=== PATIENT | male | born 1955 | race Caucasian/White ===

== ENCOUNTER → 2020-11-03 09:33 | Outpatient (CLI) | payer MEDICARE, SELFPAY ==
--- NOTE | 2020-11-03 09:44 | CT_ITS ---
PROCEDURE: CT ABDOMEN PELVIS WO CON CLINICAL INDICATION: LT FLANK PAIN, OTHER MICROSCOPIC HEMATURIA COMPARISON: CT ABDPELW/O CT ABD PELVIS W/O CONTRAST from 12/08/2013 TECHNIQUE: Axial images obtained with sagittal and coronal reformats. All CT scans at the facility use one or more dose reduction, viz: automated exposure control, ma/kV adjustment per patient size (including targeted exams where dose is matched to indication, i.e. head), or iterative reconstruction technique. FINDINGS: LOWER THORAX: Coronary artery calcifications. Mild thickening of the pericardium inferiorly and anteriorly not significantly changed ABDOMEN & PELVIS: There are 2 hypodensities involving the right hepatic lobe posteriorly segment 7 measuring 8 and 7 mm possibly due to small cyst. The 7 mm hypodensity was not readily apparent previously. There has been a prior cholecystectomy. The spleen, adrenal glands, and pancreas have an unremarkable appearance. There is mild stranding of the perinephric fat on both sides left greater than right. There is mild left-sided hydronephrosis and hydroureter. There is a 5 mm stone at the left trigone of the bladder at the ureterovesical junction. 2 mm stone is present in the lower pole of the left kidney. No intestinal obstruction or free air. Unremarkable appendix. Colonic diverticulosis. No evidence of diverticulitis. Status post right inguinal hernia repair with hyperdense material at the inguinal canal. There is a small left inguinal hernia containing fat. There are mild degenerative changes in the lumbar spine and hips. IMPRESSION: 1. 5 mm stone is present at the trigone of the urinary bladder on the left with a stone projecting toward the central aspect of the urinary bladder. There is mild left-sided hydronephrosis and hydroureter and moderate stranding of the left perinephric renal fat. 2 mm stone is present in the lower pole of the left kidney. 2. Two nonspecific hypodensities of the liver possibly related to cysts. Stability may be confirmed with follow-up as 1 of these areas have developed since the previous exam. 3. Prior right inguinal hernia repair. Small left inguinal hernia containing fat. Dictated by: Kumar Pacheco MD 11/03/2020 10:10 Kumar Pacheco MD in [place] 11/03/2020 10:10
== END ==
PROVIDERS: PCP Family Medicine; Visit Provider Family Medicine
DX: R10.9 Unspecified abdominal pain (principal); R31.29 Other microscopic hematuria
CPT/HCPCS: 74176

== ENCOUNTER → 2021-05-08 15:28 | Outpatient (CLI) | payer MEDICARE, SELFPAY ==
--- NOTE | 2021-05-08 15:39 | CT_ITS ---
FINAL REPORT CLINICAL HISTORY: HEPATIC CYST COMPARISON: 11/03/2020 FINDINGS: Technique: Axial images through the abdomen and pelvis were performed by computed tomography. This study was performed with techniques to keep radiation doses as low as reasonably achievable (ALARA). Individualized dose reduction techniques using automated exposure control or adjustment of mA and/or kV according to the patient's size were employed. Abdomen: The lung bases are clear. There are several less than 1 cm low attenuation foci in the right and left liver dome which appear visually stable but cannot be accurately characterized, may represent small cysts. The patient is status post cholecystectomy. The spleen is unremarkable. The pancreas is normal. The adrenals are normal. The aorta is normal in caliber. There is no hydronephrosis. There is no nephrolithiasis. There is a left inguinal hernia containing fat. Postoperative changes are seen in the right inguinal region. Pelvis: The appendix is unremarkable. There is sigmoid diverticulosis without evidence of diverticulitis. The urinary bladder is unremarkable. There is no free fluid or adenopathy. IMPRESSION: Low-attenuation foci in the right and left liver dome, may represent cysts. Sigmoid diverticulosis without evidence of diverticulitis. Reviewed, Interpreted and Dictated by Tom De Jesus III, MD Transcribed by Lillie Mcneil Authenticated by Tom De Jesus III, MD on 05/09/2021 08:27:56 AM [facility]
== END ==
PROVIDERS: PCP Family Medicine; Visit Provider Family Medicine
DX: K76.89 Other specified diseases of liver (principal)
CPT/HCPCS: 74176

== ENCOUNTER 2023-04-29 11:17 | Outpatient (CLI) | payer MEDICARE, SELFPAY ==
--- NOTE | 2023-04-29 11:23 | XR_ITS ---
FINAL REPORT CLINICAL HISTORY: RT SHOULDER PAIN,fall COMPARISON: None FINDINGS: RIGHT SHOULDER Three views demonstrate no acute fracture or dislocation. There are hypertrophic changes of the AC joint. The visualized joint spaces are normally aligned. The soft tissues are unremarkable. IMPRESSION: No acute process. Reviewed, Interpreted and Dictated by Tam Chowdhury MD Transcribed by Elaine Richardson Authenticated and [facility]
--- NOTE | 2023-04-29 11:23 | XR_ITS ---
FINAL REPORT CLINICAL HISTORY: RT SIDE CHEST PAIN, fall COMPARISON: None FINDINGS: 3 views of the right ribs were obtained. There is an acute appearing fracture of the right ninth rib posteriorly. There are chronic appearing fractures of the right lateral sixth, seventh, and eighth ribs. The visualized lungs are clear. No pneumothorax is identified. IMPRESSION: Acute appearing right ninth rib fracture. Reviewed, Interpreted and Dictated by Tam Chowdhury MD Transcribed by Elaine Richardson Authenticated and . [facility]
--- NOTE | 2023-04-29 11:23 | XR_ITS ---
FINAL REPORT TECHNIQUE: Chest PA & Lateral CLINICAL HISTORY: RT SIDE CHEST PAIN, fall COMPARISON: None FINDINGS: 2 views of the chest were performed. The heart size is normal. The mediastinum is within normal limits. There is no acute cardiopulmonary process. There are no pleural effusions. There is no pneumothorax. There is deformity of the right lateral sixth, seventh, and eighth ribs which appears to be old healed fractures. IMPRESSION: No acute cardiopulmonary process. Reviewed, Interpreted and Dictated by Tam Chowdhury MD Transcribed by Elaine Richardson Authenticated and [facility]
== END 2023-04-29 23:59 ==
LOC: RAD 11:18
PROVIDERS: PCP Family Medicine; Visit Provider Family Medicine
DX: M25.511 Pain in right shoulder (principal); R07.9 Chest pain, unspecified
CPT/HCPCS: 71046; 71100; 73030

== ENCOUNTER 2025-01-04 08:32 | Outpatient (CLI) | payer MEDICARE, SELFPAY ==
--- OUTSIDE RECORDS SUMMARY | 2023-08-16 07:30 | XMS_ITS ---
Author Organization [facility] Address [address] [place] [id number] Care Team Providers Care Slaughterer Religious Ritual Name Role Phone Judy De Guzman Primary Care Provider [phone] Florencio Gonzalez Unavailable [phone] Allergies Allergen (clinical drug ingredient) Drug/Non Drug Allergy documented on EMR Reaction Allergy Type Onset Date Status amoxicillin / clavulanate Augmentin stomach upset Drug Allergy Active povidone-iodine Betadine Unknown Drug Allergy A ctive Substance with 7-hcxsdex-9-methylglu taryl-coenzyme A reductase inhibitor mechanism of action (substance) Statins muscle pain Drug Allergy Active Results Component Value Reference Range Notes Influenza Screen (in house) Reviewed date:08/19/2023 09:30:25 AM Interpretation: Performing Lab: Notes/Report: results Neg CBC Fingerstick (in house) Reviewed date:08/19/2023 09:30:32 AM Interpretation: Performing Lab: Notes/Report: wbc 8.2 3.5 - 10 lym 17.6 15 - 50 mid 22.9 2 - 15 gran 59.5 35 - 80 rbc 4.74 3.5 - 5.5 hgb 14.5 11.5 - 16.5 hct 44.8 35 - 55 mcv 94.6 75 - 100 mch 30.7 25 - 35 mchc 32.4 31 - 38 plat 181 100 - 400 Covid test (in house) Reviewed date:08/19/2023 09:30:40 AM Interpretation: Performing Lab: Notes/Report: Result: Neg REASON FOR VISIT cough, congestion Medications Medication SIG (Take, Route, Frequency, Duration) Notes Start Date End Date Status ZyrTEC Allergy 10 MG 1 tab(s) orally onc e a day; Duration: 0 Active PriLOSEC OTC 20 MG 1 tab(s) orally once a day; Duration: 14 day(s) Active Aspirin Low Dose 81 MG 1 tab(s) orally o nce a day; Duration: 30 day(s) Active Triamterene-HCTZ 37.5-25 MG 1 tab(s) ora lly once a day; Duration: 90 days Active Lisinopril 10 MG TAKE 1 TABLET BY ARTURO TH EVERY DAY; Duration: 90 days Active Zithromax Z-Marco 250 MG as directed Orall y once daily; Duration: 5 day(s) 08/16/2023 Active Doxazosin Mesylate 8 MG TAKE 1 TABLET BY MOUTH EVERY DAY; Duration: 90 Active Ondansetron 4 MG 1 tablet on the tong ue and allow to dissolve Orally every 8 hours as needed 08/16/2023 Active Ezetimibe 10 MG 1 tablet Orally Once a day; Duration: 90 days Active Vital Signs Weight 210.2 lbs 08/16/2023 Blood pressure systolic 120 mm Hg 08/16/19 24 Blood pressure diastolic 82 mm Hg 024 Heart Rate 95 /min 08/16/2023 Height 68.50 in 08/16/2023 BMI 31.49 kg/m2 08/16/2023 Encounters Encounter Location Date Provider Diagnosis [facility] [address], [place] [id number] 08/16/2023 Florencio Gonzalez Acute cough R05.1 an d Nausea R11.0 Assessments Encounter Date Diagnosis (ICD Code) Assessment Notes Treatment Notes Treatment Clinical Notes Section Notes 08/16/2023 Acute cough (ICD-10 - R05.1) 08/16/2023 Nausea (ICD-10 - R11.0) Plan Of Treatment Medication Medication Name Sig Start Date Stop Date Notes Zithromax Z-Marco 250 MG as directed Orall y once daily; Duration: 5 day(s) 08/16/2023 Ondansetron 4 MG 1 tablet on the tong ue and allow to dissolve Orally every 8 hours as needed 08/16/2023 Next Appt Details Follow Up: via phone to repo rt progress, Reason: Provider Name:Florencio Wilson ry, 03/17/2025 09:30:00 AM, [address], [address], [place], [id number], Progress Notes * SARAN ANTONIODOB:1955 ( 69 yo M)Acc No.[id number]:08/16/2023 Progress Notes Patient: SARAN BELLE Provider: Louis Gonzalez M.D. :1955 A ge:68 Y S ex:Male Date:08/16/2023 Address:[address] [place] [address], [place], [id number] Pcp:uJdy De Guzman Subjective: * Chief Complaints: * 1 . Cough, congestion. * HPI: E NT/respiratory: 68 year old male presents with c/o cough P t complains of greenish yellow sputum production cough for 3 days. Associated with nasal congestion, headache and sneezing. * ROS: D ERMATOLOGY: no R jesse. n o H dex. G ASTROENTEROLOGY: Nausea y es. n o V omiting. U ROLOGY: no D ifficulty urinating. n o B lood in urine. * Medical History: H ypertension, Hiatal Hernia , Gallbladder attacks , Broken right clavical , L4 & L5 Ruptured disc , Impaired fasting glucose. * Surgical History: H ernia surgery X 3 , hydrocele repair , cholecystectomy 2013, colonoscopy , Stress test showing fixed defect 03/2016, Heart cath showing only luminal irregularities - Dr. Fernandez 03/2016, C-scope 2014, C-scope/ Normal/ Lucho Meza 12/19/2018. * Hospitalization/Major Diagno stic Procedure: D enies Past Hospitalization. * Family History: F ather: 62 yrs, emphysema. M other: alive 80 yrs, Hypertension, gallbladder problems, pacemaker. 1 sister(s) . 1 son(s) . . * Social History: C URRENT TOBACCO USE S moking Status: Patient does NOT smoke. C affeine: yes, frequency: tea. Home smoke detector use: no. Alcohol: Yes, Type: whiskey , Frequency: once a week ,Years: , Determination:. * Medications: T aking ZyrTEC Allergy 10 MG Tablet 1 tab(s) orally once a day , Taking PriLOSEC OTC 20 MG Tablet Delayed Release 1 tab(s) orally once a day , Taking Aspirin Low Dose 81 MG Tablet Delayed Release 1 tab(s) orally once a day , Taking Ezetimibe 10 MG Tablet 1 tablet Orally Once a day , Taking Doxazosin Mesylate 8 MG Tablet TAKE 1 TABLET BY MOUTH EVERY DAY , Taking Triamterene-HCTZ 37.5-25 MG Tablet 1 tab(s) orally once a day , Taking Lisinopril 10 MG Tablet TAKE 1 TABLET BY MOUTH EVERY DAY , Discontinued traMADol HCl 50 MG Tablet 1 tablet Orally four times a day as needed , Discontinued HYDROcodone-Acetaminophen 5-325 MG Tablet 1 tab(s) Orally every 6 hrs prn , Medication List reviewed and reconciled with the patient * Allergies: A ugmentin: stomach upset - Side Effects, Betadine, Statins: muscle pain - Side Effects. Objective: * Vitals: W t:210.2, Temp:99.1, BP:120/82, HR:95, O2 Sat:98% on RA, Nurse:ilan, Ht: 68.50, BMI:31.49. * Examination: E NT/Respiratory: General Appearance: N AD. E yes: P ERRLA, sclera clear. O ral cavity : erythema without exudate on pharynx. N ruby : n o cervical lymphadenopathy. H eart : R RR, normal S1 S2. L ungs: c lear to auscultation bilaterally. Assessment: * Assessment: 1. A cute cough - R05.1 (Primary) 2 . N ausea - R11.0 Plan: * Treatment: Value Reference Range r esults Neg * Maribel Mason 08/16/2023 11:47:26 AM > , Provider reviewed results while patient in office. ?LAB: CBC Fingerstick (in house) (Collection Date & Time - 08/16/2023)* Value Reference Range w bc 8.2 3.5 - 10 * l ym 17.6 15 - 50 * m id 22.9 2 - 15 * g ran 59.5 35 - 80 * r bc 4.74 3.5 - 5.5 * h gb 14.5 11.5 - 16.5 * h ct 44.8 35 - 55 * m cv 94.6 75 - 100 * m ch 30.7 25 - 35 * m chc 32.4 31 - 38 * p lat 181 100 - 400 * Maribel Mason 08/16/2023 12:11:17 PM > , Provider reviewed results while patient in office. ?LAB: Covid test (in house) (Collection Date & Time - 08/16/2023)* Value Reference Range R esult: Neg * Maribel Mason 08/16/2023 11:47:48 AM > , Provider reviewed results while patient in office. 2.?Nausea? Start Ondansetron Tablet Disintegrating, 4 MG, 1 tablet on the tongue and allow to dissolve, Orally, every 8 hours as needed, 10, Refills 1.?? * Procedure Codes: 9 [address] [place], [address] CAPILLARY BLOOD DRAW, 12739 CBC WITH AUTO DIFF, 07717 Flu Test- Nasal Swab, Modifiers: QW , 31477 COVID TEST IN HOUSE, Modifiers: QW * Follow Up: v ia phone to report progress * Images: Billing Information: * Visit Code: 21816 Office Visit, Est Pt., Level 3. * Procedure Codes: [address] [place]. [address] CAPILLARY BLOOD DRAW. 27526 CBC WITH AUTO DIFF. 97022 Flu Test- Nasal Swab. Modifiers: QW 71901 COVID TEST IN HOUSE. Modifiers: QW * Electronic signature of Opal Gonzalez MD on 01/04/2025 at 08:43 AM EDT Sign off status: Pending * Provider: Louis Gonzalez M.D. Date: 0 08/16/2023 Generated for Kodi greer/Fabian/eTransmitting on: 1 08:43 AM EDT History and Physical Notes * HPI (History of Present Illness) Category Sub-Category Detail Notes Category Not es ENT/respiratory cough Pt complains of greenish yellow sputum production cough for 3 days. Associated with nasal congestion, headache and sneezing Examination Category Sub-Category Detail Notes Category Not es ENT/Respiratory Oral cavity : erythema without exudate on pharynx Neck : no cervical lymphade nopathy Heart : RRR, normal S1 S2 Lungs: clear to auscultatio n bilaterally General Appearance: NAD Eyes: PERRLA, sclera clear
--- OUTSIDE RECORDS SUMMARY | 2023-09-17 07:45 | XMS_ITS ---
Author Organization [facility] Address [address] [place] [id number] Care Team Providers Care Firefighter Type One Name Role Phone Judy De Guzman Primary Care Provider Allergies Allergen (clinical drug ingredient) Drug/Non Drug Allergy documented on EMR Reaction Allergy Type Onset Date Status amoxicillin / clavulanate Augmentin stomach upset Drug Allergy Active povidone-iodine Betadine Unknown Drug Allergy A ctive Substance with 4-ndodivy-7-methylglu taryl-coenzyme A reductase inhibitor mechanism of action (substance) Statins muscle pain Drug Allergy Active Results Component Value Reference Range Notes P-Comprehensive Metabolic Pa carlene (CMP) Reviewed date:09/22/2023 10:50:04 PM Interpretation:gluc 112 Performing Lab: Notes/Report: Test performed by [facility], [facility] [address] [place] [address] , [address], [place] [address] Emeka Colmenares MD, Digester Operator Helper CLIA: [id number] Sodium 138 135-145 mmol/L Potassium 4.7 3.5-5.3 mmol/L Chloride 100 97-108 mmol/L CO2 27 22-32 mmol/L Glucose 112 65-99 mg/dL BUN 17 8-23 mg/dL Creatinine 1.20 0.70-1.30 mg/dL Calcium 10.0 8.6-10.4 mg/dL eGFR by Creatinine 66 >59 mL/min/1.73m2 Protein 6.6 6.0-8.3 g/dL Albumin 4.3 3.5-5.3 g/dL Alkaline Phosphatase 88 40-129 IU/L ALT (SGPT) 31 <5-55 IU/L AST (SGOT) 28 <5-46 IU/L Bilirubin, Total 0.4 <0.2-1.2 mg/dL A/G Ratio 1.9 1.1-2.5 mg/dL P-Lipid Panel Reviewed date:09/22/2023 10:50:04 PM Interpretation:hdl 38, non-hdl 144 Performing Lab: Notes/Report: Test performed by [facility], [address] , [place] [address] Emeka Colmenares MD, Digester Operator Helper CLIA: [id number] Cholesterol 182 <200 mg/dL Triglycerides 130 <150 mg/dL HDL Cholesterol 38 >39 mg/dL Cholesterol / HDL Ratio 4.79 0.00-4.99 Ratio Non-HDL Cholesterol 144 <130 mg/dL LDL Cholesterol (Calculation) 118 <130 mg/dL LDL Cholesterol Levels* Less than 100 mg/dL Optimal 100 to 129 mg/dL Near Optimal/ Above Optimal 130 to 159 mg/dL Borderline High 160 to 189 mg/dL High 190 mg/dL and above Very High * Categories as recommended by the 2004 ATPIII guidelines LDL/HDL Ratio 3.1 <3.3 Ratio LDL Cholesterol Patient History Test Date: 08/01/2022 LDL Results: 108 Units: mg/dL % Change: - Test Date: 02/14/2023 LDL Results: 110 Units: mg/dL % Change: +1% Test Date: 09/18/2023 LDL Results: 118 Units: mg/dL % Change: +7% P-PSA Reviewed date:09/22/2023 10:50:04 PM Interpretation:Normal Performing Lab: Notes/Report: Test performed by [facility] [address] , [address], [place] [address] Emeka Colmenares MD, Digester Operator Helper CLIA: [id number] PSA 1.85 <4.00 ng/mL Please note this is an ultrasensitive PSA assay with a lower limit of detection of 0.014 ng/mL. This test is performed by the [employer] ECLIA methodology. Values obtained with different assay methods or kits cannot be directly compared. REASON FOR VISIT 6 months, Needs labs Medications Medication SIG (Take, Route, Frequency, Duration) Notes Start Date End Date Status Aspirin Low Dose 81 MG 1 tab(s) orally o nce a day; Duration: 30 day(s) Active Doxazosin Mesylate 8 MG 1 tablet Orally once daily Active Lisinopril 10 MG 1 tab(s) Orally once daily Active PriLOSEC OTC 20 MG 1 tab(s) orally once a day; Duration: 14 day(s) Active ZyrTEC Allergy 10 MG 1 tab(s) orally onc e a day; Duration: 0 Active Triamterene-HCTZ 37.5-25 MG 1 tab(s) orally once a day A ctive Ezetimibe 10 MG 1 tablet Orally Once a day; Duration: 90 days Active Vital Signs Weight 211.8 lbs 09/17/2023 Blood pressure systolic 118 mm Hg 09/17/19 24 Blood pressure diastolic 70 mm Hg 024 Heart Rate 80 /min 09/17/2023 Height 68.50 in 09/17/2023 BMI 31.73 kg/m2 09/17/2023 Encounters Encounter Location Date Provider Diagnosis [facility] 36 [facility] [address] [place] [id number] 09/17/2023 Judy De Guzman HTN (hypertension) I 10 ; Dyslipidemia E78.5 ; Statin intolerance Z78.9 ; Impaired fasting glucose R73.01 ; Allergic rhinitis J30.9 and Screening for prostate cancer Z12.5 Assessments Encounter Date Diagnosis (ICD Code) Assessment Notes Treatment Notes Treatment Clinical Notes Section Notes 09/17/2023 HTN (hypertension) (ICD-10 - I10) 09/17/2023 Dyslipidemia (ICD-10 - E78.5) 09/17/2023 Statin intolerance (ICD-10 - Z78.9) 09/17/2023 Impaired fasting glucose (ICD-10 - R73.01) Reinforced low-carb diet 09/17/2023 Allergic rhinitis (ICD-10 - J30.9) 09/17/2023 Screening for prostate cancer (ICD-10 - Z12.5) Plan Of Treatment Medication Medication Name Sig Start Date Stop Date Notes Doxazosin Mesylate 8 MG 1 tablet Orally once daily Lisinopril 10 MG 1 tab(s) Orally once daily Triamterene-HCTZ 37.5-25 MG 1 tab(s) orally once a day Ezetimibe 10 MG 1 tablet Orally Once a day; Duration: 90 days Treatment Notes Assessment Notes Impaired fasting glucose Reinforced low- carb diet Next Appt Details Follow Up: 6 Months, Reason: Provider Name:Florencio olguin, 03/17/2025 09:30:00 AM, [address] [facility] 36 [facility], [address], [place], [phone], Progress Notes * SARAN ANTONIODOB:1955 ( 69 yo M)Acc No.[id number]:09/17/2023 Progress Notes Patient: Nabil DEGROOT SARAN Provider: Judy De Guzman M.D. :1955 A ge:68 Y S ex:Male Date:09/17/2023 Address:[address], [place], [id number] Subjective: * Chief Complaints: * 1 . 6 months. 2. Needs labs. * HPI: C ardiology: Saran comes in for scheduled checkup and refill of maintenance medication. Interim history is reviewed and he has had a stable course. He has not been successful with weight loss. He is not fasting today. Denies : Chest Pain. D enies : Short of Breath. D enies : Palpitations. D enies : Leg Edema. R heumatology: He is beginning to notice intermittent pain in his knees consistent with arthritis. He notices this particularly going up and down stairs or with stooping and bending. He denies swelling, locking, or catching of the knees. * ROS: D ERMATOLOGY: no R jesse. [...] cath showing only luminal irregularities - Dr. Fernadnez 03/2016, C-scope 2014, C-scope/ Normal/ Lucho Meza 12/19/2018. * Family History: F ather: 62 yrs, [...] TABLET BY MOUTH EVERY DAY , Discontinued Zithromax Z-Marco 250 MG Tablet as directed Orally once daily , Discontinued Ondansetron 4 MG Tablet Disintegrating 1 tablet on the tongue and allow to dissolve Orally every 8 hours as needed , Medication List reviewed and reconciled with the patient * Allergies: A ugmentin: stomach upset - Side Effects, Betadine, Statins: muscle pain - Side Effects. Objective: * Vitals: W t:211.8, Temp:97.5, BP:118/70, HR:80, O2 Sat:96% on RA, Nurse:ANGEL, Ht: 68.50, BMI:31.73. * Examination: G eneral Examination: General Appearance: N AD. . H EENT: s clera and conjunctiva clear, PERRLA, TM's normal, translucent. Mild to moderate nasal congestion. O ral cavity: n o lesions, mucosa moist and WNL, no erythema. H eart: R SR. L ungs: c lear to auscultation. E xtremities: n o leg edema. Knees without effusion, redness, or warmth. Minimal crepitus.. Assessment: * Assessment: 1. H TN (hypertension) - I10 (Primary) 2 . D yslipidemia - E78.5 3 . S tatin intolerance - Z78.9 4 . I mpaired fasting glucose - R73.01? 5. A llergic rhinitis - J30.9 6 . S creening for prostate cancer - Z12.5 Plan: * Treatment: Value Reference Range A /G Ratio 1.9 1.1-2.5 - mg/dL * A lbumin 4.3 3.5-5.3 - g/dL * A lkaline Phosphatase 88 40-129 - IU/L * A LT (SGPT) 31 <5-55 - IU/L * A ST (SGOT) 28 <5-46 - IU/L * B ilirubin, Total 0.4 <0.2-1.2 - mg/dL * B UN 17 8-23 - mg/dL * C alcium 10.0 8.6-10.4 - mg/dL * C hloride 100 97-108 - mmol/L * C O2 27 22-32 - mmol/L * C reatinine 1.20 0.70-1.30 - mg/dL * G lucose 112 H 65-99 - mg/dL * P otassium 4.7 3.5-5.3 - mmol/L * S odium 138 135-145 - mmol/L * P rotein 6.6 6.0-8.3 - g/dL * e GFR by Creatinine 66 >59 - mL/min/1.73m2 * Judy De Guzman 09/22/2023 1 0:49:55 PM >See phone encounter 2.?Dyslipidemia? Refill Ezetimibe Tablet, 10 MG, 1 tablet, Orally, Once a day, 90 days, 90 Tablet, Refills 1.?LAB: P-Lipid Panel (Collection Date & Time - 09/18/2023 10:10 AM)?hdl 38, non-hdl 144* Value Reference Range C holesterol / HDL Ratio 4.79 0.00-4.99 - Ratio * C holesterol 182 <200 - mg/dL * H DL Cholesterol 38 L >39 - mg/dL * L DL Cholesterol (Calculation) 118 <130 - mg/d L * L DL/HDL Ratio 3.1 <3.3 - Ratio * N on-HDL Cholesterol 144 H <130 - mg/dL * T riglycerides 130 <150 - mg/dL * Judy De Guzman 09/22/2023 1 0:49:55 PM >See phone encounter 3.?Impaired fasting glucose? Notes: Reinforced low-carb diet??4.?Screening for prostate cancer?LAB: P-PSA (Collection Date & Time - 09/18/2023 10:10 AM)?Normal* Value Reference Range P SA 1.85 <4.00 - ng/mL * Judy De Guzman 09/22/2023 1 0:49:55 PM >See phone encounter * Procedure Codes: 9 4760 [place] * Follow Up: 6 Months * Images: Billing Information: * Visit Code: 49325 Office Visit, Est Pt., Level 4. * Procedure Codes: 13787 [place]SE [place]. * Electronic signature of Judy De Guzman MD on 01/04/2025 at 08:44 AM EDT Sign off status: Pending * Provider: Judy De Guzman M.D. Date: 0 09/17/2023 Generated for Renani zoey/Fabian/eTransmitting on: 1 08:44 AM EDT History and Physical Notes * HPI (History of Present Illness) Category Sub-Category Detail Notes Category Not es Cardiology Short of Breath Chest Pain Palpitations Leg Edema Examination Category Sub-Category Detail Notes Category Not es General Examination HEENT: sclera and c onjunctiva clear, PERRLA, TM's normal, translucent. Mild to moderate nasal congestion Heart: RSR Lungs: clear to auscultatio n Extremities: no leg edema. Knees without effusion, redness, or warmth. Minimal crepitus. General Appearance: NAD. Oral cavity: no lesions, mucosa m oist and WNL, no erythema
--- OUTSIDE RECORDS SUMMARY | 2023-09-18 04:45 | XMS_ITS ---
Author Organization [facility] Address 1210 [facility] [address] [place] [phone] Care Team Providers Care Electrical Line Worker Name Role Phone Judy De Guzman Primary Care Provider Results Component Value Reference Range Notes Glycohemoglobin A1c (in hous e) Reviewed date:09/22/2023 10:50:04 PM Interpretation:6.3 Performing Lab: Notes/Report: 6.3 glycohemoglobin 6.3% 5 - 6.5 % P-Comprehensive Metabolic Pa carlene (CMP) Reviewed date:03/18/2024 11:07:36 AM Interpretation: Performing Lab: Notes/Report: P-Lipid Panel Reviewed date:03/18/2024 11:07:53 AM Interpretation: Performing Lab: Notes/Report: P-PSA Reviewed date:03/18/2024 11:08:06 AM Interpretation: Performing Lab: Notes/Report: REASON FOR VISIT blood work Encounters Encounter Location Date Provider Diagnosis Laureen [facility] [address] [place] [phone] 09/18/2023 Judy De Guzman HTN (hypertension) I 10 ; Dyslipidemia E78.5 ; Impaired fasting glucose R73.01 and Prostate cancer screening Z12.5 Assessments Encounter Date Diagnosis (ICD Code) Assessment Notes Treatment Notes Treatment Clinical Notes Section Notes 09/18/2023 HTN (hypertension) (ICD-10 - I10) 09/18/2023 Dyslipidemia (ICD-10 - E78.5) 09/18/2023 Impaired fasting glucose (ICD-10 - R73.01) 09/18/2023 Prostate cancer screening (ICD-10 - Z12.5) Plan Of Treatment Next Appt Details Provider Name:Florencio Wilson ry, 03/17/2025 09:30:00 AM, [address], [address], [place], [id number], Progress Notes * SARAN ANTONIODOB:1955 ( 69 yo M)Acc No.[id number]:09/18/2023 Patient: SARAN BELLE Provider: Judy De Guzman M.D. :1955 A ge:68 Y S ex:Male Date:09/18/2023 Address:[address] [place] [address], [place], [id number] Subjective: * Chief Complaints: * 1 . Blood work. * Medical History: Objective: * Vitals: Assessment: * Assessment: 1. H TN (hypertension) - I10 2 . D yslipidemia - E78.5 3 .?Impaired fasting glucose - R73.01 4 . P rostate cancer screening - Z12.5? Plan: * Treatment: 2.?Dyslipidemia?LAB: P-Lipid Panel (Collection Date & Time - 03/18/2024)* see duplicate order 3.?Impaired fasting glucose?LAB: Glycohemoglobin A1c (in house) (Collection Date & Time - 09/18/2023)? 6.3* Value Reference Range g lycohemoglobin 6.3% 5 - 6.5 % * Willow Archuleta 09/18/2023 12: 23:30 PM > Judy De Guzman 09/22/2023 10:49:55 PM >See phone encounter 4.?Prostate cancer screening?LAB: P-PSA (Collection Date & Time - 03/18/2024)* see duplicate order * Procedure Codes: 3 6416 CAPILLARY BLOOD DRAW, 44605 GLYCATED HEMOGLOBIN TEST, Modifiers: QW * Images: Billing Information: * Visit Code: * Procedure Codes: 18407 CAPILLARY BLOOD DRAW. 03272 GLYCATED HEMOGLOBIN TEST. Modifiers: QW * Electronic signature of Judy De Guzman MD on 01/04/2025 at 08:45 AM EDT Sign off status: Pending * Provider: Judy De Guzman M.D. Date: 0 09/18/2023 Generated for Kodi greer/Fabian/Jose Raul on: 1 08:45 AM EDT
--- OUTSIDE RECORDS SUMMARY | 2024-03-17 05:00 | XMS_ITS ---
Author Organization [facility] Address [address] [place] [phone] Care Team Providers Care Manager Outpatient Name Role Phone Judy De Guzman Primary Care Provider Allergies Allergen (clinical drug ingredient) Drug/Non Drug Allergy documented on EMR Reaction Allergy Type Onset Date Status amoxicillin / clavulanate Augmentin stomach upset Drug Allergy Active povidone-iodine Betadine Unknown Drug Allergy A ctive Substance with 4-olecueu-5-methylglu taryl-coenzyme A reductase inhibitor mechanism of action (substance) Statins muscle pain Drug Allergy Active Results Component Value Reference Range Notes Glycohemoglobin A1c (in hous e) Reviewed date:03/19/2024 01:25:55 PM Interpretation:6.3% Performing Lab: Notes/Report: 6.3% glycohemoglobin 6.3% 5 - 6.5 % P-Comprehensive Metabolic Pa carlene (CMP) Reviewed date:03/19/2024 01:25:55 PM Interpretation:gluc 123 Performing Lab: Notes/Report: Test performed by [employer] [facility] , [address], [place] [address] Emeka Colmenares MD, Electronic Publications Specialist CLIA: [id number] Sodium 141 135-145 mmol/L Potassium 4.0 3.5-5.3 mmol/L Chloride 102 97-108 mmol/L CO2 24 22-32 mmol/L Glucose 123 65-99 mg/dL BUN 20 8-23 mg/dL Creatinine 1.22 0.70-1.30 mg/dL Calcium 9.8 8.6-10.4 mg/dL eGFR by Creatinine 64 >59 mL/min/1.73m2 Protein 6.7 6.0-8.3 g/dL Albumin 4.1 3.5-5.3 g/dL Alkaline Phosphatase 82 40-129 IU/L ALT (SGPT) 28 <5-55 IU/L AST (SGOT) 20 <5-46 IU/L Bilirubin, Total 0.4 <0.2-1.2 mg/dL A/G Ratio 1.6 1.1-2.5 P-Lipid Panel Reviewed date:03/19/2024 01:25:55 PM Interpretation:trigs 169, hdl 37, non-hdl 136 Performing Lab: Notes/Report: Test performed by [employer], [address] , [place] [address] Emeka Colmenares MD, Electronic Publications Specialist CLIA: [id number] Cholesterol 173 <200 mg/dL Triglycerides 169 <150 mg/dL HDL Cholesterol 37 >39 mg/dL Cholesterol / HDL Ratio 4.68 0.00-4.99 Ratio Non-HDL Cholesterol 136 <130 mg/dL LDL Cholesterol (Calculation) 102 <130 mg/dL LDL Cholesterol Levels* Less than 100 mg/dL Optimal 100 to 129 mg/dL Near Optimal/ Above Optimal 130 to 159 mg/dL Borderline High 160 to 189 mg/dL High 190 mg/dL and above Very High * Categories as recommended by the 2004 ATPIII guidelines LDL/HDL Ratio 2.8 <3.3 Ratio LDL Cholesterol Patient History Test Date: 02/14/2023 LDL Results: 110 Units: mg/dL % Change: +1% Test Date: 09/18/2023 LDL Results: 118 Units: mg/dL % Change: +7% Test Date: 03/17/2024 LDL Results: 102 Units: mg/dL % Change: -13% REASON FOR VISIT 6 months f/u and AWV Medications Medication SIG (Take, Route, Frequency, Duration) Notes Start Date End Date Status Lisinopril 10 MG 1 tab(s) Orally once daily Active Doxazosin Mesylate 8 MG 1 tablet Orally once daily Active PriLOSEC OTC 20 MG 1 tab(s) orally once a day; Duration: 14 day(s) Active Aspirin Low Dose 81 MG 1 tab(s) orally o nce a day; Duration: 30 day(s) Active ZyrTEC Allergy 10 MG 1 tab(s) orally onc e a day; Duration: 0 Active Ezetimibe 10 MG 1 tablet Orally Once a day; Duration: 90 days Active Triamterene-HCTZ 37.5-25 MG 1 tab(s) orally once a day A ctive Problems Problem Type SNOMED Code ICD Code Onset Dates Problem Status W/U Status Risk Notes Problem Body mass index 30+ - obesity (593644216) BMI 30.0-30.9,a dult (Z68.30) Active confirmed Vital Signs Weight 203 lbs 03/17/2024 Blood pressure systolic 134 mm Hg 03/17/19 25 Blood pressure diastolic 78 mm Hg 025 Heart Rate 77 /min 03/17/2024 Height 68.50 in 03/17/2024 BMI 30.41 kg/m2 03/17/2024 Encounters Encounter Location Date Provider Diagnosis Laureen [address] [facility] [address] [place], [place] [phone] 03/17/2024 Judy De Guzman HTN (hypertension) I 10 ; Adult general medical examination Z00.00 ; Dyslipidemia E78.5 ; Impaired fasting glucose R73.01 ; Statin intolerance Z78.9 ; GERD (gastroesophageal reflux disease) K21.9 ; Hepatic cyst K76.89 ; History of kidney stones Z87.442 ; Allergic rhinitis J30.9 and BMI 30.0-30.9,adult Z68.30 Assessments Encounter Date Diagnosis (ICD Code) Assessment Notes Treatment Notes Treatment Clinical Notes Section Notes 03/17/2024 HTN (hypertension) (ICD-10 - I10) 03/17/2024 Adult general medical examination (ICD-10 - Z00.00) Patient instructed to return to office Annually for Annual Wellness Visits to include annual screenings of Pain assessment, Functional Ability assessment, Cognitive Ability assessment, Fall Risk assessment, Depression screening and Bladder control screening. 03/17/2024 Dyslipidemia (ICD-10 - E78.5) 03/17/2024 Impaired fasting glucose (ICD-10 - R73.01) Reinforced low-carb diet 03/17/2024 Statin intolerance (ICD-10 - Z78.9) 03/17/2024 GERD (gastroesophageal reflux disease) (ICD-10 - K21.9) 03/17/2024 Hepatic cyst (ICD-10 - K76.89) 03/17/2024 History of kidney stones (ICD-10 - Z87.442) 03/17/2024 Allergic rhinitis (ICD-10 - J30.9) 03/17/2024 BMI 30.0-30.9,adult (ICD-10 - Z68.30) Plan Of Treatment Medication Medication Name Sig Start Date Stop Date Notes Lisinopril 10 MG 1 tab(s) Orally once daily Doxazosin Mesylate 8 MG 1 tablet Orally once daily Ezetimibe 10 MG 1 tablet Orally Once a day; Duration: 90 days Triamterene-HCTZ 37.5-25 MG 1 tab(s) orally once a day Treatment Notes Assessment Notes Adult general medical examination Patien t instructed to return to office Annually for Annual Wellness Visits to include annual screenings of Pain assessment, Functional Ability assessment, Cognitive Ability assessment, Fall Risk assessment, Depression screening and Bladder control screening. Impaired fasting glucose Reinforced low- carb diet Next Appt Details Follow Up: 6 Months. , Reaso n: Provider Name:Florencio Wilson , 03/17/2025 09:30:00 AM, [address], [address], [place], [place], [phone], Progress Notes * SARAN ANTONIODOB:1955 ( 69 yo M)Acc No.[id number]:03/17/2024 Annual Wellness Visit Patient: SARAN BELLE Provider: Judy De Guzman M.D. :1955 A ge:68 Y S ex:Male Date:03/17/2024 Address:[facility] [place] , [place], [id number] Subjective: * Chief Complaints: * 1 . 6 months f/u and AWV. * HPI: H PI: Patient is here today for 6 month check up and Annual Wellness Visit. Pt is fasting today. Pt sts that his got the flu and he had the flu last week as well. Pt took Tamiflu that helped and he finished that Saturday. Pt sts that he has no new concerns or complaints at this time. C ardiology: Denies : Chest Pain. D enies : Short of Breath. D enies : Palpitations. D enies : Leg Edema. * ROS: D ERMATOLOGY: no R jesse. n o H dex. G ASTROENTEROLOGY: Nausea y es. n o V omiting. O PTHALMOLOGY: Negative for d enies vision issues. U ROLOGY: no D ifficulty urinating. n [...] tablet Orally Once a day , Taking Triamterene-HCTZ 37.5-25 MG Tablet 1 tab(s) orally once a day , Taking Lisinopril 10 MG Tablet 1 tab(s) Orally once daily , Taking Doxazosin Mesylate 8 MG Tablet 1 tablet Orally once daily , Discontinued Tamiflu 75 MG Capsule 1 capsule Orally Twice a day , Medication List reviewed and reconciled with the patient * Allergies: A ugmentin: stomach upset - Side Effects, Betadine, Statins: muscle pain - Side Effects. Objective: * Vitals: W t:203, Temp:97.3, BP:134/78, HR:77, O2 Sat:98% on RA, Nurse:ANGEL, Ht: 68.50, BMI:30.41. * Examination: G eneral Examination: General Appearance: N AD. Weight loss noted. H EENT: s clera and conjunctiva clear, PERRLA, TM's normal, translucent. O ral cavity: n o lesions, mucosa moist and WNL, no erythema. H eart: R SR. L ungs: c lear to auscultation. E xtremities: n o leg edema. * Physical Examination: G ENERAL: Pain Assessment: P ain level: 0, on a scale of 0-10 (with 10 being extreme pain). F unctional Status Assessment: P atient response to question of how often physical health interferes with daily activities: . Never Able to perform ADLs-including meal preparation, grocery shopping, housework, laundry, taking medications or handling finances. Cognitive Status: alert and oriented. Ambulation Status: Fully ambulatory . F all Risk Assessment: I ndependant in ambulation, adequate lighting in home. Patient has NOT fallen or had trouble walking within the past 12 months. D epression Screening: Isidro razo depressed mood or anxiety. Describes emotional health as: positive. B ladder Control Screening: Isidro razo problems. Assessment: * Assessment: 1. H TN (hypertension) - I10 (Primary) 2 . A dult general medical examination - Z00.00 3 . D yslipidemia - E78.5 4 . I mpaired fasting glucose - R73.01 5 . S tatin intolerance - Z78.9 6 . G ERD (gastroesophageal reflux disease) - K21.9 7 . H epatic cyst - K76.89 ?8. H istory of kidney stones - Z87.442 9 . A llergic rhinitis - J30.9? 10. B VT 30.0-30.9,adult - Z68.30 Plan: * Treatment: Value Reference Range A /G Ratio 1.6 1.1-2.5 - * A lbumin 4.1 3.5-5.3 - g/dL * A lkaline Phosphatase 82 40-129 - IU/L * A LT (SGPT) 28 <5-55 - IU/L * A ST (SGOT) 20 <5-46 - IU/L * B ilirubin, Total 0.4 <0.2-1.2 - mg/dL * B UN 20 8-23 - mg/dL * C alcium 9.8 8.6-10.4 - mg/dL * C hloride 102 97-108 - mmol/L * C O2 24 22-32 - mmol/L * C reatinine 1.22 0.70-1.30 - mg/dL * G lucose 123 H 65-99 - mg/dL * P otassium 4.0 3.5-5.3 - mmol/L * S odium 141 135-145 - mmol/L * P rotein 6.7 6.0-8.3 - g/dL * e GFR by Creatinine 64 >59 - mL/min/1.73m2 * Judy De Guzman 03/19/2024 1: 25:46 PM >See phone encounter 2.?Adult general medical examination? Notes:Patient instructed to return to office Annually for Annual Wellness Visits to include annual screenings of Pain assessment, Functional Ability assessment, Cognitive Ability assessment, Fall Risk assessment, Depression screening and Bladder control screening.??3.?Dyslipidemia? Refill Ezetimibe Tablet, 10 MG, 1 tablet, Orally, Once a day, 90 days, 90 Tablet, Refills 1.?LAB: P-Lipid Panel (Collection Date & Time - 03/17/2024 08:24 AM)?trigs 169, hdl 37, non-hdl 136* Value Reference Range C holesterol / HDL Ratio 4.68 0.00-4.99 - Ratio * C holesterol 173 <200 - mg/dL * H DL Cholesterol 37 L >39 - mg/dL * L DL Cholesterol (Calculation) 102 <130 - mg/d L * L DL/HDL Ratio 2.8 <3.3 - Ratio * N on-HDL Cholesterol 136 H <130 - mg/dL * T riglycerides 169 H <150 - mg/dL * Judy De Guzman 03/19/2024 1: 25:46 PM >See phone encounter 4.?Impaired fasting glucose?LAB: Glycohemoglobin A1c (in house) (Collection Date & Time - 03/17/2024)? 6.3%* Value Reference Range g lycohemoglobin 6.3% 5 - 6.5 % * Elidia Schmidt 03/17/2024 9:45: 49 AM > Judy De Guzman 03/19/2024 1:25:46 PM >See phone encounter Notes: Reinforced low-carb diet?? * Procedure Codes: G 0439 ANNUAL WELLNESS VST; PPS SUBSQT VST, 94511 GLYCATED HEMOGLOBIN TEST, Modifiers: QW , G0444 ANNUAL DEPRESSION SCREENING 15 MIN, 1090F PRES/ABSN URINE INCON ASSESS, 3288F FALL RISK ASSESSMENT DOCD, 1170F FXNL STATUS ASSESSED, 1126F AMNT PAIN NOTED NONE PRSNT, 1159F MED LIST DOCD IN RCRD, 1003F LEVEL OF ACTIVITY ASSESS, 1036F TOBACCO NON-USER, 3017F COLORECTAL CA SCREEN DOC REV * Preventive Medicine: Counseling: E motional health: D iscussed ways to improve socialization. E xercise: P atient advised to start, increase or maintain level of exercise/physical activity. Injury prevention: F all prevention discussed. Discussed need for cane/walker. Potential trip hazards discussed. Immunizations: P neumococcal r ecommended. I nfluenza r ecommended seasonally. Screening / Special Tests: C olonoscopy R ecent history: 12/19/2018, negative, repeat 5 years, recommended. P SA , normal. * Follow Up: 6 Months. * Images: Billing Information: * Visit Code: 08631 Office Visit, Est Pt., Level 3. * Procedure Codes: G0439 ANNUAL WELLNESS VST; PPS SUBSQT VST. 58576 GLYCATED HEMOGLOBIN TEST. Modifiers: QW G0444 ANNUAL DEPRESSION SCREENING 15 MIN. 1090F PRES/ABSN URINE INCON ASSESS. 3288F FALL RISK ASSESSMENT DOCD. 1170F FXNL STATUS ASSESSED. 1126F AMNT PAIN NOTED NONE PRSNT. 1159F MED LIST DOCD IN RCRD. 1003F LEVEL OF ACTIVITY ASSESS. 1036F TOBACCO NON-USER. 3017F COLORECTAL CA SCREEN DOC REV. * Electronic signature of Judy De Guzman MD on 01/04/2025 at 08:44 AM EDT Sign off status: Pending * Provider: Judy De Guzman M.D. Date: 0 03/17/2024 Generated for Kodi greer/Fabian/Maniitting on: 1 08:44 AM EDT History and Physical Notes * HPI (History of Present Illness) Category Sub-Category Detail Notes Category Not es Cardiology Short of Breath Chest Pain Palpitations Leg Edema HPI Patient is here today for 6 valentine h check up and Annual Wellness Visit. Pt is fasting today. Pt sts that his got the flu and he had the flu last week as well. Pt took Tamiflu that helped and he finished that Saturday. Pt sts that he has no new concerns or complaints at this time Physical Examination Category Sub-Category Detail Notes Section Note s GENERAL Pain Assessment: Pain level: 0, on a scale of 0-10 (with 10 being extreme pain) Functional Status Assessment: Patient response to question of how often physical health interferes with daily activities: . Never Able to perform ADLs-including meal preparation, grocery shopping, housework, laundry, taking medications or handling finances. Cognitive Status: alert and oriented. Ambulation Status: Fully ambulatory Fall Risk Assessment: Independant in amb ulation, adequate lighting in home. Patient has NOT fallen or had trouble walking within the past 12 months Depression Screening: Denies depressed m ood or anxiety. Describes emotional health as: positive Bladder Control Screening: Denies proble ms Examination Category Sub-Category Detail Notes Category Not es General Examination HEENT: sclera and c onjunctiva clear, PERRLA, TM's normal, translucent Heart: RSR Lungs: clear to auscultatio n Extremities: no leg edema General Appearance: NAD. Weight loss not ed Oral cavity: no lesions, mucosa m oist and WNL, no erythema
--- OUTSIDE RECORDS SUMMARY | 2024-08-21 10:45 | XMS_ITS ---
[facility] Address [address] [place] [phone] Care Team Providers Care Mainframe Programmer Name Role Phone Judy De Guzman Primary Care Provider Carlos Florencio Unavailable [phone] Allergies Allergen (clinical drug ingredient) Drug/Non Drug Allergy documented on EMR Reaction Allergy Type Onset Date Status amoxicillin / clavulanate Augmentin stomach upset Drug Allergy Active povidone-iodine Betadine Unknown Drug Allergy A ctive Substance with 1-maciqsx-1-methylglu taryl-coenzyme A reductase inhibitor mechanism of action (substance) Statins muscle pain Drug Allergy Active REASON FOR VISIT boil below belly button, possible staph infection Medications Medication SIG (Take, Route, Frequency, Duration) Notes Start Date End Date Status Mupirocin 2 % 1 application Credit Union Examiner ally Twice a day 08/21/2024 Active Clindamycin HCl 300 MG 1 capsule Orally every 12 hrs; Duration: 7 days 08/21/2024 Active Lisinopril 10 MG TAKE 1 TABLET BY ARTURO TH DAILY; Duration: 90 Active Ezetimibe 10 MG TAKE 1 TABLET BY ARTURO TH DAILY; Duration: 90 Active Doxazosin Mesylate 8 MG TAKE 1 TABLET BY MOUTH DAILY; Duration: 90 Active Triamterene-HCTZ 37.5-25 MG TAKE 1 TABLET BY MOUTH DAILY; Duration: 90 Active Aspirin Low Dose 81 MG 1 tab(s) orally o nce a day; Duration: 30 day(s) Active ZyrTEC Allergy 10 MG 1 tab(s) orally onc e a day; Duration: 0 Active PriLOSEC OTC 20 MG 1 tab(s) orally once a day; Duration: 14 day(s) Active Problems Problem Type SNOMED Code ICD Code Onset Dates Problem Status W/U Status Risk Notes Problem BMI 30+ - obesity (404303335) BMI 32.0-32.9,a dult (Z68.32) Active confirmed Vital Signs Weight 216.6 lbs 08/21/2024 Blood pressure systolic 124 mm Hg 08/22/19 25 Blood pressure diastolic 78 mm Hg 025 Heart Rate 92 /min 08/21/2024 Height 68.50 in 08/21/2024 BMI 32.45 kg/m2 08/21/2024 Encounters Encounter Location Date Provider Diagnosis [facility] 36 [facility] [address] [place] [phone] 08/21/2024 Florencio Gonzalez Cellulitis, abdomina l wall L03.311 and BMI 32.0-32.9,adult Z68.32 Assessments Encounter Date Diagnosis (ICD Code) Assessment Notes Treatment Notes Treatment Clinical Notes Section Notes 08/21/2024 Cellulitis, abdominal wall (ICD-10 - L03.311) 08/21/2024 BMI 32.0-32.9,adult (ICD-10 - Z68.32) Plan Of Treatment Medication Medication Name Sig Start Date Stop Date Notes Mupirocin 2 % 1 application Credit Union Examiner ally Twice a day 08/21/2024 Clindamycin HCl 300 MG 1 capsule Orally every 12 hrs; Duration: 7 days 08/21/2024 Next Appt Details Follow Up: via phone to repo rt progress, Reason: Provider Name:Florencio Wilson , 03/17/2025 09:30:00 AM, 12[address] [facility] 36 [facility], [address], [place], [phone], Progress Notes * SARAN HOUSTONDOB:1955 ( 69 yo M)Acc No.[id number]:08/21/2024 Progress Notes Patient: SARAN BELLE Provider: Louis Gonzalez M.D. :1955 A ge:69 Y S ex:Male Date:08/21/2024 Address:[address] [place] [address], [id number] Pcp:Judy De Guzman Subjective: * Chief Complaints: * 1 . Boil below belly button, possible staph infection. * HPI: D ermatology: 69 year old male presents with c/o abscess P t complains of possible abscess about 2 inches below navel. Pt states there is redness and swelling as well. Pt states he had a place on his arm that positive for Staph and is concerned spot on abdomen may be staph as well. * ROS: C ARDIOLOGY: no D izziness. n o C hest pain. G ASTROENTEROLOGY: no N ausea. n o H eartburn. U ROLOGY: no D ifficulty urinating. n [...] tab(s) orally once a day , Taking Triamterene-HCTZ 37.5-25 MG Tablet TAKE 1 TABLET BY MOUTH DAILY , Taking Doxazosin Mesylate 8 MG Tablet TAKE 1 TABLET BY MOUTH DAILY , Taking Ezetimibe 10 MG Tablet TAKE 1 TABLET BY MOUTH DAILY , Taking Lisinopril 10 MG Tablet TAKE 1 TABLET BY MOUTH DAILY , Medication List reviewed and reconciled with the patient * Allergies: A ugmentin: stomach upset - Side Effects, Betadine, Statins: muscle pain - Side Effects. Objective: * Vitals: W t: 216.6, Temp: 97.8, BP: 124/78, HR: 92, Nurse: ilan, Ht: 68.50, BMI:32.45. * Examination: G eneral Examination: General Appearance: N AD. S kin: m ost inferior midline abdomen with a small area of dull red skin, indurated, small central abrasion, no fluctuance or drainage. Assessment: * Assessment: 1. C ellulitis, abdominal wall - L03.311 (Primary) 2 . B ND 32.0-32.9,adult - Z68.32 Plan: * Treatment: * Procedure Codes: G 2211 Complex e/m visit add on, 1036F TOBACCO NON-USER, G8783 BP SCR PRFRM RCMDD DEFIND SCR INTVL, G8752 MOST RECENT SYSTOLIC BP < 140MM HG, G8754 MOST RECENT DIASTOLIC BP < 90MM HG * Follow Up: v ia phone to report progress * Images: Billing Information: * Visit Code: 31755 Office Visit, Est Pt., Level 3. * Procedure Codes: G2211 Complex e/m visit add on. 1036F TOBACCO NON-USER. G8783 BP SCR PRFRM RCMDD DEFIND SCR INTVL. G8752 MOST RECENT SYSTOLIC BP < 140MM HG. G8754 MOST RECENT DIASTOLIC BP < 90MM HG. * Electronic signature of Opal Gonzalez MD on 01/04/2025 at 08:43 AM EDT Sign off status: Pending * Provider: Louis Gonzalez M.D. Date: 0 08/21/2024 Generated for Kodi greer/Fabian/Maniitting on: 1 08:43 AM EDT History and Physical Notes * HPI (History of Present Illness) Category Sub-Category Detail Notes Category Not es Dermatology abscess Pt complains of possible abscess about 2 inches below navel. Pt states there is redness and swelling as well. Pt states he had a place on his arm that positive for Staph and is concerned spot on abdomen may be staph as well Examination Category Sub-Category Detail Notes Category Not es General Examination General Appearance: NAD Skin: most inferior midlin e abdomen with a small area of dull red skin, indurated, small central abrasion, no fluctuance or drainage
--- OUTSIDE RECORDS SUMMARY | 2024-09-14 05:00 | XMS_ITS ---
Author Organization [facility] Address [address] [place] [id number] Care Team Providers Care Director News Name Role Phone Judy De Guzman Primary Care Provider Florencio Gonzalez Unavailable [phone] Allergies Allergen (clinical drug ingredient) Drug/Non Drug Allergy documented on EMR Reaction Allergy Type Onset Date Status amoxicillin / clavulanate Augmentin stomach upset Drug Allergy Active povidone-iodine Betadine Unknown Drug Allergy A ctive Substance with 8-txgphkj-7-methylglu taryl-coenzyme A reductase inhibitor mechanism of action (substance) Statins muscle pain Drug Allergy Active Results Component Value Reference Range Notes Glucose (In-House) Reviewed date:09/15/2024 09:17:34 AM Interpretation:111 Performing Lab: Notes/Report: 111 blood glucose 111 74 - 106 mg/dL Glycohemoglobin A1c (in hous e) Reviewed date:09/15/2024 09:17:35 AM Interpretation:6.8% Performing Lab: Notes/Report: 6.8% glycohemoglobin 6.8% 5 - 6.5 % P-Comprehensive Metabolic Pa carlene (CMP) Reviewed date:09/15/2024 09:17:34 AM Interpretation:Glu 124 Performing Lab: Notes/Report: CLIA: [id number] Emeka Colmenares MD, Spar Finisher [facility] , [address], [place] [address] Test performed by [facility], [facility] Sodium 140 135-145 mmol/L Potassium 4.0 3.5-5.3 mmol/L Chloride 104 97-108 mmol/L CO2 25 20-32 mmol/L Glucose 124 65-99 mg/dL BUN 18 8-23 mg/dL Creatinine 1.03 0.70-1.30 mg/dL Calcium 9.6 8.6-10.4 mg/dL eGFR by Creatinine 79 >59 mL/min/1.73m2 Protein 6.7 6.0-8.3 g/dL Albumin 4.2 3.5-5.3 g/dL Alkaline Phosphatase 81 40-129 IU/L ALT (SGPT) 24 <5-55 IU/L AST (SGOT) 24 <5-46 IU/L Bilirubin, Total 0.4 <0.2-1.2 mg/dL A/G Ratio 1.7 1.1-2.5 P-Lipid Panel Reviewed date:09/15/2024 09:17:34 AM Interpretation:HDL 35, Chol/HDL 5.17, Non-hdl 146, HDL/LDL 3.3 Performing Lab: Notes/Report: Test performed by [employer], [address] , [place] [address] Emeka Colmenares MD, Spar Finisher CLIA: [id number] Cholesterol 181 <200 mg/dL Triglycerides 145 <150 mg/dL HDL Cholesterol 35 >39 mg/dL Cholesterol / HDL Ratio 5.17 0.00-4.99 Ratio Non-HDL Cholesterol 146 <130 mg/dL LDL Cholesterol (Calculation) 117 <130 mg/dL LDL Cholesterol Levels* Less than 100 mg/dL Optimal 100 to 129 mg/dL Near Optimal/ Above Optimal 130 to 159 mg/dL Borderline High 160 to 189 mg/dL High 190 mg/dL and above Very High * Categories as recommended by the 2004 ATPIII guidelines LDL/HDL Ratio 3.3 <3.3 Ratio LDL Cholesterol Patient History Test Date: 09/18/2023 LDL Results: 118 Units: mg/dL % Change: +7% Test Date: 03/17/2024 LDL Results: 102 Units: mg/dL % Change: -13% Test Date: 09/14/2024 LDL Results: 117 Units: mg/dL % Change: +14% REASON FOR VISIT 6 month ckup Medications Medication SIG (Take, Route, Frequency, Duration) Notes Start Date End Date Status Doxazosin Mesylate 8 MG TAKE 1 TABLET BY MOUTH DAILY; Duration: 90 Active PriLOSEC OTC 20 MG 1 tab(s) orally once a day Active Lisinopril 10 MG TAKE 1 TABLET BY ARTURO TH DAILY Active Ezetimibe 10 MG TAKE 1 TABLET BY ARTURO TH DAILY Active Triamterene-HCTZ 37.5-25 MG TAKE 1 TABLET BY MOUTH DAILY Active Aspirin Low Dose 81 MG 1 tab(s) orally o nce a day; Duration: 30 day(s) Active ZyrTEC Allergy 10 MG 1 tab(s) orally onc e a day; Duration: 0 Active Problems Problem Type SNOMED Code ICD Code Onset Dates Problem Status W/U Status Risk Notes Problem Impaired fasting glycaemia (583861396) IFG (impaired fasting glucose) (R73.01) Active confirmed Vital Signs Weight 213 lbs 09/14/2024 Blood pressure systolic 110 mm Hg 09/15/19 25 Blood pressure diastolic 64 mm Hg 025 Heart Rate 81 /min 09/14/2024 Height 68.50 in 09/14/2024 BMI 31.91 kg/m2 09/14/2024 Encounters Encounter Location Date Provider Diagnosis [facility] [address] [place] [address] [address] [facility] [address] [place] [id number] 09/14/2024 Florencio Gonzalez HTN (hypertension) I 10 ; Dyslipidemia E78.5 ; GERD (gastroesophageal reflux disease) K21.9 and IFG (impaired fasting glucose) R73.01 Assessments Encounter Date Diagnosis (ICD Code) Assessment Notes Treatment Notes Treatment Clinical Notes Section Notes 09/14/2024 HTN (hypertension) (ICD-10 - I10) 09/14/2024 Dyslipidemia (ICD-10 - E78.5) 09/14/2024 GERD (gastroesophageal reflux disease) (ICD-10 - K21.9) 09/14/2024 IFG (impaired fasting glucose) (ICD-10 - R73.01) Plan Of Treatment Medication Medication Name Sig Start Date Stop Date Notes PriLOSEC OTC 20 MG 1 tab(s) orally once a day Lisinopril 10 MG TAKE 1 TABLET BY MOUTH DAILY Ezetimibe 10 MG TAKE 1 TABLET BY MOUTH DAILY Triamterene-HCTZ 37.5-25 MG TAKE 1 TABLET BY MOUTH DAILY Next Appt Details Follow Up: 6 Months, Reason: Provider Name:Florencio Wilson , 03/17/2025 09:30:00 AM, [facility] [address] [facility], [address], [place], [id number], Progress Notes * SARAN ANTONIODOB:1955 ( 69 yo M)Acc No.[id number]:09/14/2024 Progress Notes Patient: SARAN BELLE Provider: Louis Gonzalez M.D. :1955 A ge:69 Y S ex:Male Date:09/14/2024 Address:[address] [place] [address] [place], [id number] Pcp:Judy De Guzman Subjective: * Chief Complaints: * 1 . 6 month ckup. * HPI: C ardiology: 69 year old male presents with c/o Blood Pressure Elevated P t here for 6 mo f/u on hypertension. Pt states he is doing well and does not have any concerns.? c/o Hyperlipidemia P t is fasting today. * ROS: D ERMATOLOGY: no R jesse. n o H dex. G ASTROENTEROLOGY: no N ausea. n o V omiting. U ROLOGY: no D ifficulty urinating. n o B lood in urine. * Medical History: H ypertension, Hiatal Hernia , Gallbladder attacks , Broken right clavical , L4 & L5 Ruptured disc , Impaired fasting glucose. * Surgical History: H ernia surgery X 3 , Hydrocele Repair , Cholecystectomy 2013, Colonoscopy , Stress test showing fixed defect 03/2016, Heart cath showing only luminal irregularities - Dr. Fernandez 03/2016, C-scope 2014, C-scope/ Normal/ Lucho Meza - 2023 . * Hospitalization/Major Diagno stic Procedure: Isidro razo Past Hospitalization. * Family History: F ather: 62 yrs, emphysema. M other: alive 80 yrs, Hypertension, gallbladder problems, pacemaker. 1 sister(s) . 1 son(s) . . * Social History: C URRENT TOBACCO USE: No . C affeine: yes, frequency: tea. Home smoke [...] TAKE 1 TABLET BY MOUTH DAILY , Discontinued Clindamycin HCl 300 MG Capsule 1 capsule Orally every 12 hrs , Discontinued Mupirocin 2 % Ointment 1 application Externally Twice a day , Medication List reviewed and reconciled with the patient * Allergies: A ugmentin: stomach upset - Side Effects, Betadine, Statins: muscle pain - Side Effects. Objective: * Vitals: W t: 213, Temp: 98.0, BP: 110/64, HR: 81, Nurse: ilan, Ht: 68.50, BMI:31.91. * Examination: C ardiology: General Appearance: p leasant, NAD. H EENT: u nremarkable. H eart sounds: R RR, normal S1, S2. L ungs: c lear, no rales or wheezes.?Extremities: n o leg edema. Assessment: * Assessment: 1. H TN (hypertension) - I10 (Primary) 2 . D yslipidemia - E78.5 3 . G ERD (gastroesophageal reflux disease) - K21.9 4 . I FG (impaired fasting glucose) - R73.01 Plan: * Treatment: Value Reference Range A /G Ratio 1.7 1.1-2.5 - * A lbumin 4.2 3.5-5.3 - g/dL * A lkaline Phosphatase 81 40-129 - IU/L * A LT (SGPT) 24 <5-55 - IU/L * A ST (SGOT) 24 <5-46 - IU/L * B ilirubin, Total 0.4 <0.2-1.2 - mg/dL * B UN 18 8-23 - mg/dL * C alcium 9.6 8.6-10.4 - mg/dL * C hloride 104 97-108 - mmol/L * C O2 25 20-32 - mmol/L * C reatinine 1.03 0.70-1.30 - mg/dL * G lucose 124 H 65-99 - mg/dL * P otassium 4.0 3.5-5.3 - mmol/L * S odium 140 135-145 - mmol/L * P rotein 6.7 6.0-8.3 - g/dL * e GFR by Creatinine 79 >59 - mL/min/1.73m2 * Elidia Schmidt 09/15/2024 09:1 5:27 AM EDT > See phone encounter 2.?Dyslipidemia? Continue Ezetimibe Tablet, 10 MG, TAKE 1 TABLET BY MOUTH DAILY.?LAB: P-Comprehensive Metabolic Panel (CMP) (Collection Date & Time - 09/14/2024 08:36 AM)?Glu 124* Value Reference Range A /G Ratio 1.7 1.1-2.5 - * A lbumin 4.2 3.5-5.3 - g/dL * A lkaline Phosphatase 81 40-129 - IU/L * A LT (SGPT) 24 <5-55 - IU/L * A ST (SGOT) 24 <5-46 - IU/L * B ilirubin, Total 0.4 <0.2-1.2 - mg/dL * B UN 18 8-23 - mg/dL * C alcium 9.6 8.6-10.4 - mg/dL * C hloride 104 97-108 - mmol/L * C O2 25 20-32 - mmol/L * C reatinine 1.03 0.70-1.30 - mg/dL * G lucose 124 H 65-99 - mg/dL * P otassium 4.0 3.5-5.3 - mmol/L * S odium 140 135-145 - mmol/L * P rotein 6.7 6.0-8.3 - g/dL * e GFR by Creatinine 79 >59 - mL/min/1.73m2 * Elidia Schmidt 09/15/2024 09:1 5:27 AM EDT > See phone encounter ?LAB: P-Lipid Panel (Collection Date & Time - 09/14/2024 08:36 AM)?HDL 35, Chol/HDL 5.17, Non-hdl 146, HDL/LDL 3.3* Value Reference Range C holesterol / HDL Ratio 5.17 H 0.00-4.99 - Ratio * C holesterol 181 <200 - mg/dL * H DL Cholesterol 35 L >39 - mg/dL * L DL Cholesterol (Calculation) 117 <130 - mg/d L * L DL/HDL Ratio 3.3 H <3.3 - Ratio * N on-HDL Cholesterol 146 H <130 - mg/dL * T riglycerides 145 <150 - mg/dL * Elidia Schmidt 09/15/2024 09:1 5:27 AM EDT > See phone encounter 3.?GERD (gastroesophageal reflux disease)? Continue PriLOSEC OTC Tablet Delayed Release, 20 MG, 1 tab(s), orally, once a day.??4.?IFG (impaired fasting glucose)?LAB: Glucose (In-House) (Collection Date & Time - 09/14/2024)?111* Value Reference Range b lood glucose 111 74 - 106 mg/dL * Maribel Mason 09/14/2024 10:30:4 4 AM EDT > Elidia Schmidt 09/15/2024 09:15:27 AM EDT > See phone encounter ?LAB: Glycohemoglobin A1c (in house) (Collection Date & Time - 09/14/2024)? 6.8%* Value Reference Range g lycohemoglobin 6.8% 5 - 6.5 % * Maribel Mason 09/14/2024 10:33:2 3 AM EDT > Elidia Schmidt 09/15/2024 09:15:27 AM EDT > See phone encounter * Procedure Codes: G 2211 Complex e/[place], [address] GLUCOSE TEST, 36804 GLYCATED HEMOGLOBIN TEST, Modifiers: QW , 1036F TOBACCO NON-USER, G8950 PREHTN/HTN BP DOC INDCD F/U DOC, G8752 MOST RECENT SYSTOLIC BP < 140MM HG, G8754 MOST RECENT DIASTOLIC BP < 90MM HG, 3044F HG A1C LEVEL LT 7.0% * Follow Up: 6 Months * Images: Billing Information: * Visit Code: 65613 Office Visit, Est Pt., Level 4. * Procedure Codes: G2211 Complex e/[place]. [address] GLUCOSE TEST. 26721 GLYCATED HEMOGLOBIN TEST. Modifiers: QW 1036F TOBACCO NON-USER. G8950 PREHTN/HTN BP DOC INDCD F/U DOC. G8752 MOST RECENT SYSTOLIC BP < 140MM HG. G8754 MOST RECENT DIASTOLIC BP < 90MM HG. 3044F HG A1C LEVEL LT 7.0%. * Electronic signature of Opal Gonzalez MD on 01/04/2025 at 08:43 AM EDT Sign off status: Pending * Provider: Brittni ClementsD. Date: 0 09/14/2024 Generated for Kodi greer/Fabian/Maniitting on: 1 08:43 AM EDT History and Physical Notes * HPI (History of Present Illness) Category Sub-Category Detail Notes Category Not es Cardiology Blood Pressure Elevated Pt here for 6 mo f/u on hypertension. Pt states he is doing well and does not have any concerns Hyperlipidemia Pt is fasting today Examination Category Sub-Category Detail Notes Category Not es Cardiology Lungs: clear, no rales or wheezes HEENT: unremarkable Heart sounds: RRR, normal S1, S2 Extremities: no leg edema General Appearance: pleasant, NAD
--- OUTSIDE RECORDS SUMMARY | 2024-12-21 05:00 | XMS_ITS ---
Author Organization [facility] Address [address] [place] [id number] Care Team Providers Care Game Programmer Name Role Phone Judy De Guzman Primary Care Provider Florencio Gonzalez Unavailable [phone] Allergies Allergen (clinical drug ingredient) Drug/Non Drug Allergy documented on EMR Reaction Allergy Type Onset Date Status amoxicillin / clavulanate Augmentin stomach upset Drug Allergy Active povidone-iodine Betadine Unknown Drug Allergy A ctive Substance with 8-pphljpe-2-methylglu taryl-coenzyme A reductase inhibitor mechanism of action (substance) Statins muscle pain Drug Allergy Active Results Component Value Reference Range Notes Glucose (In-House) Reviewed date:12/21/2024 11:43:53 AM Interpretation:97 Performing Lab: Notes/Report: 97 blood glucose 97 74 - 106 mg/dL Glycohemoglobin A1c (in hous e) Reviewed date:12/21/2024 11:43:53 AM Interpretation:5.9 Performing Lab: Notes/Report: 5.9 glycohemoglobin 5.9% 5 - 6.5 % REASON FOR VISIT blood work, referral for podiatry Medications Medication SIG (Take, Route, Frequency, Duration) Notes Start Date End Date Status Doxazosin Mesylate 8 MG 1 tablet Orally Once a day; Duration: 90 days Active Lisinopril 10 MG TAKE 1 TABLET BY ARTURO TH DAILY; Duration: 90 Active Ezetimibe 10 MG TAKE 1 TABLET BY ARTURO TH DAILY Active PriLOSEC OTC 20 MG 1 tab(s) orally once a day Active ZyrTEC Allergy 10 MG 1 tab(s) orally onc e a day; Duration: 0 Active Jardiance 10 MG 1 tablet Orally Once a day 025 Active Triamterene-HCTZ 37.5-25 MG TAKE 1 TABLET BY MOUTH DAILY Active Aspirin Low Dose 81 MG 1 tab(s) orally o nce a day; Duration: 30 day(s) Active Problems Problem Type SNOMED Code ICD Code Onset Dates Problem Status W/U Status Risk Notes Problem Type II diabetes mellitus without complication (077339156) Type 2 diabetes mellitus without complication, without long-term current use of insulin (E11.9) Active confirmed Vital Signs Weight 201 lbs 12/21/2024 Blood pressure systolic 126 mm Hg 12/22/19 25 Blood pressure diastolic 82 mm Hg 025 Heart Rate 76 /min 12/21/2024 Height 68.50 in 12/21/2024 BMI 30.11 kg/m2 12/21/2024 Encounters Encounter Location Date Provider Diagnosis [facility] [address] [facility] 36 [facility] [address] [place] [id number] 12/21/2024 Florencio Gonzalez Type 2 diabetes mellitus without complication, without long-term current use of insulin E11.9 and Pain in left foot M79.672 Assessments Encounter Date Diagnosis (ICD Code) Assessment Notes Treatment Notes Treatment Clinical Notes Section Notes 12/21/2024 Type 2 diabetes mellitus without complication, without long-term current use of insulin (ICD-10 - E11.9) 12/21/2024 Pain in left foot (ICD-10 - M79.672) Plan Of Treatment Medication Medication Name Sig Start Date Stop Date Notes Jardiance 10 MG 1 tablet Orally Once a day 09/16/2024 Pending Test Test Name Order Date X ray : Foot, left 12/21/2024 Next Appt Details Follow Up: 3 Months fasting, Reason: Provider Name:Florencio Wilson ry, 03/17/2025 09:30:00 AM, [address] [facility], [address], [place], [id number], Progress Notes * SARAN ANTONIODOB:1955 ( 69 yo M)Acc No.[id number]:12/21/2024 Progress Notes Patient: Nabil MIKAYLASARAN Provider: Louis Gonzalez M.D. :1955 A ge:69 Y S ex:Male Date:12/21/2024 Address:[address], [place], [id number] Pcp:Judy De Guzman Subjective: * Chief Complaints: * 1 . Blood work, referral for podiatry. * HPI: E ndocrinology: 69 year old male presents with c/o Recent Blood Sugars P t here for checkup on DM 2. Pt states he is doing well and does not have any concerns at this time.? * ROS: M USCULOSKELETAL: Positive for p ain in left foot under ball of foot for over 6 months. * Medical History: H ypertension, Hiatal Hernia [...] 2023 . * Hospitalization/Major Diagno stic Procedure: D enies [...] 1 TABLET BY MOUTH DAILY , Taking PriLOSEC OTC 20 MG Tablet Delayed Release 1 tab(s) orally once a day , Taking Jardiance 10 MG Tablet 1 tablet Orally Once a day , Taking Doxazosin Mesylate 8 MG Tablet 1 tablet Orally Once a day , Taking Lisinopril 10 MG Tablet TAKE 1 TABLET BY MOUTH DAILY , Medication List reviewed and reconciled with the patient * Allergies: A ugmentin: stomach upset - Side Effects, Betadine, Statins: muscle pain - Side Effects. Objective: * Vitals: W t: 201, Temp: 98.0, BP: 126/82, HR: 76, Nurse: ilan, Ht: 68.50, BMI:30.11. * Examination: G eneral Examination: General Appearance: N AD. H eart: R SR. L ungs:?clear to auscultation. E xtremities: s ome tenderness to palpation along the medial side of the inferior 1 st MTP joint of the left foot. Assessment: * Assessment: 1. T ype 2 diabetes mellitus without complication, without long-term current use of insulin - E11.9 (Primary) 2 . P ain in left foot - M79.672 Plan: * Treatment: Value Reference Range b lood glucose 97 74 - 106 mg/dL * Maribel Mason 12/21/2024 10:34 :27 AM EDT > Provider reviewed results while patient in office. ?LAB: Glycohemoglobin A1c (in house) (Collection Date & Time - 12/21/2024)? 5.9* Value Reference Range g lycohemoglobin 5.9% 5 - 6.5 % * Maribel Mason 12/21/2024 10:34 :47 AM EDT > Provider reviewed results while patient in office. 2.?Pain in left foot?Imaging: X ray : Foot, left * Procedure Codes: G 2211 Complex e/[place], [address] CAPILLARY BLOOD DRAW, 76005 GLUCOSE TEST, 33143 GLYCATED HEMOGLOBIN TEST, Modifiers: QW , 3044F HG A1C LEVEL LT 7.0%, 1036F TOBACCO NON-USER, 3017F COLORECTAL CA SCREEN DOC REV, R3681 BP SCR PRFRM RCMDD DEFIND SCR INTVL, G8752 MOST RECENT SYSTOLIC BP < 140MM HG, G8754 MOST RECENT DIASTOLIC BP < 90MM HG, 3074F SYST BP LT 130 MM HG, 3079F DIAST BP 80-89 MM HG * Preventive Medicine: Screening / Special Tests: C olonoscopy , repeat in 7 years. * Follow Up: 3 Months fasting * Images: Billing Information: * Visit Code: 81177 Office Visit, Est Pt., Level 3. * Procedure Codes: G2211 Complex e/[place]. [address] CAPILLARY BLOOD DRAW. 21744 GLUCOSE TEST. 21428 GLYCATED HEMOGLOBIN TEST. Modifiers: QW 3044F HG A1C LEVEL LT 7.0%. 1036F TOBACCO NON-USER. 3017F COLORECTAL CA SCREEN DOC REV. G8783 BP SCR PRFRM RCMDD DEFIND SCR INTVL. G8752 MOST RECENT SYSTOLIC BP < 140MM HG. G8754 MOST RECENT DIASTOLIC BP < 90MM HG. 3074F SYST BP LT 130 MM HG. 3079F DIAST BP 80-89 MM HG. * Electronic signature of Opal Gonzalez MD on 01/04/2025 at 08:42 AM EDT Sign off status: Pending * Provider: Louis Gonzalez M.D. Date: Generated for Kodi greer/Fabian/Maniitting on: 08:42 AM EDT History and Physical Notes * HPI (History of Present Illness) Category Sub-Category Detail Notes Category Not es Endocrinology Recent Blood Sugars Pt here for checkup on DM 2. Pt states he is doing well and does not have any concerns at this time Examination Category Sub-Category Detail Notes Category Not es General Examination Heart: RSR Lungs: clear to auscultatio n Extremities: some tenderness to p alpation along the medial side of the inferior 1 st MTP joint of the left foot General Appearance: NAD
--- NOTE | 2025-01-04 08:36 | XR_ITS ---
FINAL REPORT CLINICAL HISTORY: pain under big toe..no trauma FINDINGS: LEFT FOOT Three views of the left foot demonstrate no acute fracture or dislocation. The visualized joint spaces are normally aligned. There is mild soft tissue edema. A small plantar spur is noted. IMPRESSION: No acute bony abnormality. Reviewed, Interpreted and Dictated by Tam Chowdhury MD Transcribed by Soni Mcdonald Authenticated and [facility]
--- OUTSIDE RECORDS SUMMARY | 2025-01-04 08:43 | XMS_ITS | Encounter Summary ---
Author Organization [employer] ([place], [place], [place], [place]) Address [address] [place] [address] Care Team Providers Care Associate Dean Of Women Name Role Phone Florencio Gonzalez MD Primary Care Provider [phone] Trevor De Guzman MD Primary Care Provider [phone] Encounter Details Date Type Department Care Team (Late st Contact Info) Description 12/19/2018 Transcribed Document [facility] [place] [facility] [place] [address] ProviderAni MD [address] [place] [address] Social History Tobacco Use Types Packs/Day Years Used Date Smoking Tobacco: Never Assessed Sex and Gender Information Value Date Recorded Sex Assigned at Not on file Legal Sex Male 5:51 PM CDT Gender Identity Not on file Sexual Orientation Not on file documented as of this encounter Miscellaneous Notes * Cerner Conversion Note - Ani ProviderMD - 12/19/2018 8:36 AM CDT [facility] Endo PACU Summary Primary Physician: TERI CEVALLOS MD-ASHU Finalized Date/Time: 12/19/18 09:56:53 Pt. Name: GALLITO MULLINS/Sex: 1955 Male Med Rec #: [id number] Physician: TERI CEVALLOS MD-ASHU Financial #: [id number] Pt. Type: O Room/Bed: / Admit/Disch: 12/19/18 06:52:00 - Institution: [facility] PACU Case Times Entry 1 In PACU I 12/19/18 08:58:00 Ready for PACU 12/19/18 09:54:00 Discharge Discharge from PACU 12/19/18 09:55:00 I Last Modified By: Li Flores RN 12/19/18 09:56:50 [facility] Endo PACU Case Times Audit 12/19/18 09:56:50 Substation Electrician Supervisor: FOREIGN Modifier: FOREIGN <+> 1 Ready for PACU Discharge <+> 1 Discharge from PACU I Finalized By: Li Flores, RN Document Signatures Signed By: Li Flores RN 12/19/18 09:56 Electronically signed by Jorge [facility] Conversion Physically Impaired Teacher Cerner at 06/27/2022 1:39 PM CDT documented in this encounter Plan of Treatment Not on file documented as of this encounter Visit Diagnoses Not on filedocumented in this encounter Care Teams Associate Dean Of Women Relationship Specialty Start Date End Date Florencio Gonzalez MD [address] [place] [facility] [address] [place] [id number] PCP - General Family Medicine 01/01/24 03/17/24 Trevor De Guzman MD [address] [facility] [address] [place] [id number] PCP - General Family Medicine 03/18/24 documented as of this encounter
--- OUTSIDE RECORDS SUMMARY | 2025-01-04 08:43 | XMS_ITS ---
Author Organization Unknown Results OrderDate OrderTestName ResultName ResultDate Value Units Range AbnormalFlag ResultStatus ObservationNotes TestCode ResultCode DateRecorded AccessionNumber DiagnosticSectionCode DiagnosticSectionName Sequence Interpretation Custom CollectionStartDate CollectionEndDate 03/17/2024 00:00:00 P-Lipid Panel Triglycerides 9658-41-25C18:00:00 169 mg/dL <150 - mg/dL H Judy Alcala 03/19/2024 1:25:46 PM > See phone encounter P-Lipid Panel Coding Triglycerides 03/17/2024 00:00: 00:00:00P-Lipid PanelNon-HDL Cholesterol 2302-68-07T96:00:64790hq/dL<130 - mg/dLJudy Donis 03/19/2024 1:25:46 PM > See phone encounter Coding P-Lipid Panel Coding Non-HDL Cholesterol 03/17/2024 00:00: 00:00:00P-Lipid PanelLDL/HDL Ratio 4247-26-44B02:00:002.8Ratio<3.3 - RatioJudy Arreaga 03/19/2024 1:25:46 PM > See phone encounter Coding P-Lipid Panel Coding LDL/HDL Ratio 03/17/2024 00:00: 00:00:00P-Lipid PanelLDL Cholesterol (Calculation) 5706-44-96J79:00:20042yh/dL<130 - mg/dLJudy Arreaga 03/19/2024 1:25:46 PM > See phone encounter Coding P-Lipid Panel Coding LDL Cholesterol (Calculation ) 03/17/2024 00:00: 00:00:00P-Lipid PanelHDL Cholesterol 9377-94-75S76:00:0037mg/dL>39 - mg/dLJudy Suarez 03/19/2024 1:25:46 PM > See phone encounter Coding P-Lipid Panel Coding HDL Cholesterol 03/17/2024 00:00: 00:00:00P-Lipid PanelCholesterol 9033-50-16N32:00:22006ck/dL<200 - mg/dLJudy Arreaga 03/19/2024 1:25:46 PM > See phone encounter Coding P-Lipid Panel Coding Cholesterol 03/17/2024 00:00: 00:00:00P-Lipid PanelCholesterol / HDL Ratio 6975-76-91K06:00:004.09Sgeem6.00-4.99 - RatioJudy Arreaga 03/19/2024 1:25:46 PM > See phone encounter Coding P-Lipid Panel Coding Cholesterol / HDL Ratio 03/17/2024 00:00: 00:00:00P-Comprehensive Metabolic Panel (CMP)eGFR by Nlcyznslne7489-80-65Q48:00:0064mL/min/1.73m2>59 - mL/min/1.97f3IlvnafrwJudy Alcala 03/19/2024 1:25:46 PM > See phone encounter Coding P-Comprehensive Metabolic Pa carlene (CMP) 03/17/2024 00:00: 00:00:00P-Comprehensive Metabolic Panel (CMP) Nhtdqun9087-31-33P97:00:006.7g/dL6.0-8.3 - g/dLJudy Arreaga 03/19/2024 1:25:46 PM > See phone encounter Coding P-Comprehensive Metabolic Pa carlene (CMP) Coding Protein 03/17/2024 00:00: 00:00:00P-Comprehensive Metabolic Panel (CMP) Bjqsks4218-85-69Q19:00:82002qdxj/Z298-179 - mmol/LRJudy Palm 03/19/2024 1:25:46 PM > See phone encounter Coding P-Comprehensive Metabolic Pa carlene (CMP) Coding Sodium 03/17/2024 00:00: 00:00:00P-Comprehensive Metabolic Panel (CMP) Hlvctbyvm9621-15-52S59:00:004.0mmol/L3.5-5.3 - mmol/Judy Suarez 03/19/2024 1:25:46 PM > See phone encounter Coding P-Comprehensive Metabolic Pa carlene (CMP) Coding Potassium 03/17/2024 00:00: 00:00:00P-Comprehensive Metabolic Panel (CMP) Yfwysml8376-58-09Z50:00:96448jb/dL65-99 - mg/dLJudy Donis 03/19/2024 1:25:46 PM > See phone encounter Coding P-Comprehensive Metabolic Pa carlene (CMP) Coding Glucose 03/17/2024 00:00: 00:00:00P-Comprehensive Metabolic Panel (CMP) Fihpwbcsay2316-81-75P58:00:001.22mg/dL0.70-1.30 - mg/dLJudy Arreaga 03/19/2024 1:25:46 PM > See phone encounter Coding P-Comprehensive Metabolic Pa carlene (CMP) Coding Creatinine 03/17/2024 00:00: 00:00:00P-Comprehensive Metabolic Panel (CMP)CO2 0566-47-05Q69:00:0024mmol/L22-32 - mmol/Judy Suarez 03/19/2024 1:25:46 PM > See phone encounter Coding P-Comprehensive Metabolic Pa carlene (CMP) Coding CO2 03/17/2024 00:00: 00:00:00P-Comprehensive Metabolic Panel (CMP) Mxlxiutv0759-61-72Q74:00:13609wvqv/L97-108 - mmol/Judy Suarez 03/19/2024 1:25:46 PM > See phone encounter Coding P-Comprehensive Metabolic Pa carlene (CMP) Coding Chloride 03/17/2024 00:00: 00:00:00P-Comprehensive Metabolic Panel (CMP) Dxjakel0415-33-24M73:00:009.8mg/dL8.6-10.4 - mg/dLJudy Arreaga 03/19/2024 1:25:46 PM > See phone encounter Coding P-Comprehensive Metabolic Pa carlene (CMP) Coding Calcium 03/17/2024 00:00: 00:00:00P-Comprehensive Metabolic Panel (CMP)BUN 8716-50-04N77:00:0020mg/dL8-23 - mg/dLJudy Arreaga 03/19/2024 1:25:46 PM > See phone encounter Coding P-Comprehensive Metabolic Pa carlene (CMP) Coding BUN 03/17/2024 00:00: 00:00:00P-Comprehensive Metabolic Panel (CMP) Bilirubin, Hzwoz8516-79-36M30:00:000.4mg/dL<0.2-1.2 - mg/dLJudy Arreaga 03/19/2024 1:25:46 PM > See phone encounter Coding P-Comprehensive Metabolic Pa carlene (CMP) Coding Bilirubin, Total 03/17/2024 00:00: 00:00:00P-Comprehensive Metabolic Panel (CMP)AST (SGOT)2502-78-77P57:00:0020IU/L<5-46 - IU/LRevieWonorfJudy mcclendon 03/19/2024 1:25:46 PM > See phone encounter Coding P-Comprehensive Metabolic Pa carlene (CMP) Coding AST (SGOT) 03/17/2024 00:00: 00:00:00P-Comprehensive Metabolic Panel (CMP)ALT (SGPT)0915-20-10D88:00:0028IU/L<5-55 - IU/LReviewedNorfJudy mcclendon 03/19/2024 1:25:46 PM > See phone encounter Coding P-Comprehensive Metabolic Pa carlene (CMP) Coding ALT (SGPT) 03/17/2024 00:00: 00:00:00P-Comprehensive Metabolic Panel (CMP) Alkaline Dpzznwluvlw5113-34-38P25:00:0082IU/L40-129 - IU/LRevieJudy Guerrero 03/19/2024 1:25:46 PM > See phone encounter Coding P-Comprehensive Metabolic Pa carlene (CMP) Coding Alkaline Phosphatase 03/17/2024 00:00: 00:00:00P-Comprehensive Metabolic Panel (CMP) Qtceaap8021-07-14W91:00:004.1g/dL3.5-5.3 - g/dLJudy Arreaga 03/19/2024 1:25:46 PM > See phone encounter Coding P-Comprehensive Metabolic Pa carlene (CMP) Coding Albumin 03/17/2024 00:00: 00:00:00P-Comprehensive Metabolic Panel (CMP)A/G Yueqy3568-63-02Q40:00:001.61.1-2.5 -Judy Arreaga 03/19/2024 1:25:46 PM > See phone encounter Coding P-Comprehensive Metabolic Pa carlene (CMP) Coding A/G Ratio 03/17/2024 00:00: 00:00:00Glycohemoglobin A1c (in house) niznqyfbttctbwc5817-25-49U12:00:006.3%%5 - 6.5 %Elidia Quinones 03/17/2024 9:45:49 AM > Judy De Guzman 03/19/2024 1:25:46 PM > See phone encounter Coding Glycohemoglobin A1c (in hous e) Coding glycohemoglobin 03/17/2024 00:00: 00:00:00P-Lipid PanelTriglycerides 1959-46-88P90:00:49981fs/dL<150 - mg/dLElidia Quinones 09/15/2024 09:15:27 AM EDT > See phone encounter Coding P-Lipid Panel Coding Triglycerides 09/14/2024 00:00: 00:00:00P-Lipid PanelNon-HDL Cholesterol 2239-67-74L03:00:13442gx/dL<130 - mg/dLElidia Rice 09/15/2024 09:15:27 AM EDT > See phone encounter Coding P-Lipid Panel Coding Non-HDL Cholesterol 09/14/2024 00:00: 00:00:00P-Lipid PanelLDL/HDL Ratio 2387-93-33D83:00:003.3Ratio<3.3 - Elidia Littlejohn 09/15/2024 09:15:27 AM EDT > See phone encounter Coding P-Lipid Panel Coding LDL/HDL Ratio 09/14/2024 00:00: 00:00:00P-Lipid PanelLDL Cholesterol (Calculation) 2785-15-14C25:00:09460br/dL<130 - mg/dLElidia Quinones 09/15/2024 09:15:27 AM EDT > See phone encounter Coding P-Lipid Panel Coding LDL Cholesterol (Calculation ) 09/14/2024 00:00: 00:00:00P-Lipid PanelHDL Cholesterol 1256-54-83N97:00:0035mg/dL>39 - mg/dLElidia Panchal 09/15/2024 09:15:27 AM EDT > See phone encounter Coding P-Lipid Panel Coding HDL Cholesterol 09/14/2024 00:00: 00:00:00P-Lipid PanelCholesterol 8002-99-27A33:00:16455fz/dL<200 - mg/dLElidia Quinones 09/15/2024 09:15:27 AM EDT > See phone encounter Coding P-Lipid Panel Coding Cholesterol 09/14/2024 00:00: 00:00:00P-Lipid PanelCholesterol / HDL Ratio 6371-87-18Q19:00:005.75Vtlnf6.00-4.99 - Elidia Littlejohn 09/15/2024 09:15:27 AM EDT > See phone encounter Coding P-Lipid Panel Coding Cholesterol / HDL Ratio 09/14/2024 00:00: 00:00:00P-Comprehensive Metabolic Panel (CMP)eGFR by Btjpnxfqbq7165-23-60O89:00:0079mL/min/1.73m2>59 - mL/min/1.21w5XasyaadiNxtrrElidia Quinones 09/15/2024 09:15:27 AM EDT > See phone encounter Coding P-Comprehensive Metabolic Pa carlene (CMP) 09/14/2024 00:00: 00:00:00P-Comprehensive Metabolic Panel (CMP) Sdjtoth1659-10-49X78:00:006.7g/dL6.0-8.3 - g/dLElidia Quinones 09/15/2024 09:15:27 AM EDT > See phone encounter Coding P-Comprehensive Metabolic Pa carlene (CMP) Coding Protein 09/14/2024 00:00: 00:00:00P-Comprehensive Metabolic Panel (CMP) Ltpprt2112-70-30H21:00:76366cmrl/L167-110 - mmol/Elidia Panchal 09/15/2024 09:15:27 AM EDT > See phone encounter Coding P-Comprehensive Metabolic Pa carlene (CMP) Coding Sodium 09/14/2024 00:00: 00:00:00P-Comprehensive Metabolic Panel (CMP) Dnywydset8465-76-56D38:00:004.0mmol/L3.5-5.3 - mmol/Elidia Panchal 09/15/2024 09:15:27 AM EDT > See phone encounter Coding P-Comprehensive Metabolic Pa carlene (CMP) Coding Potassium 09/14/2024 00:00: 00:00:00P-Comprehensive Metabolic Panel (CMP) Ojcxzca5324-34-22H20:00:90780oa/dL65-99 - mg/dLElidia Rice 09/15/2024 09:15:27 AM EDT > See phone encounter Coding P-Comprehensive Metabolic Pa carlene (CMP) Coding Glucose 09/14/2024 00:00: 00:00:00P-Comprehensive Metabolic Panel (CMP) Gfzhucocvp9467-52-94A71:00:001.03mg/dL0.70-1.30 - mg/dLElidia Quinones 09/15/2024 09:15:27 AM EDT > See phone encounter Coding P-Comprehensive Metabolic Pa carlene (CMP) Coding Creatinine 09/14/2024 00:00: 00:00:00P-Comprehensive Metabolic Panel (CMP)CO2 1035-12-45A45:00:0025mmol/L20-32 - mmol/Elidia Panchal 09/15/2024 09:15:27 AM EDT > See phone encounter Coding P-Comprehensive Metabolic Pa carlene (CMP) Coding CO2 09/14/2024 00:00: 00:00:00P-Comprehensive Metabolic Panel (CMP) Iivbkayp6416-80-06S66:00:58049fgzn/L97-108 - mmol/ROBERTevElidia Choi 09/15/2024 09:15:27 AM EDT > See phone encounter Coding P-Comprehensive Metabolic Pa carlene (CMP) Coding Chloride 09/14/2024 00:00: 00:00:00P-Comprehensive Metabolic Panel (CMP) Olllrvk7123-54-57A97:00:009.6mg/dL8.6-10.4 - mg/dLElidia Quinones 09/15/2024 09:15:27 AM EDT > See phone encounter Coding P-Comprehensive Metabolic Pa carlene (CMP) Coding Calcium 09/14/2024 00:00: 00:00:00P-Comprehensive Metabolic Panel (CMP)BUN 4787-30-90X99:00:0018mg/dL8-23 - mg/dLElidia Quinones 09/15/2024 09:15:27 AM EDT > See phone encounter Coding P-Comprehensive Metabolic Pa carlene (CMP) Coding BUN 09/14/2024 00:00: 00:00:00P-Comprehensive Metabolic Panel (CMP) Bilirubin, Oiqgy4504-88-54C25:00:000.4mg/dL<0.2-1.2 - mg/dLElidia Quinones 09/15/2024 09:15:27 AM EDT > See phone encounter Coding P-Comprehensive Metabolic Pa carlene (CMP) Coding Bilirubin, Total 09/14/2024 00:00: 00:00:00P-Comprehensive Metabolic Panel (CMP)AST (SGOT)2170-28-67Q21:00:0024IU/L<5-46 - IU/LRevieElidia Davey 09/15/2024 09:15:27 AM EDT > See phone encounter Coding P-Comprehensive Metabolic Pa carlene (CMP) Coding AST (SGOT) 09/14/2024 00:00: 00:00:00P-Comprehensive Metabolic Panel (CMP)ALT (SGPT)7965-92-20H79:00:0024IU/L<5-55 - IU/LRevElidia Choi 09/15/2024 09:15:27 AM EDT > See phone encounter Coding P-Comprehensive Metabolic Pa carlene (CMP) Coding ALT (SGPT) 09/14/2024 00:00: 00:00:00P-Comprehensive Metabolic Panel (CMP) Alkaline Vtemawmnlxo7426-20-41O00:00:0081IU/L40-129 - IU/Elidia Panchal 09/15/2024 09:15:27 AM EDT > See phone encounter Coding P-Comprehensive Metabolic Pa carlene (CMP) Coding Alkaline Phosphatase 09/14/2024 00:00: 00:00:00P-Comprehensive Metabolic Panel (CMP) Yitxizo2781-61-93X71:00:004.2g/dL3.5-5.3 - g/dLRevieweElidia Galicia 09/15/2024 09:15:27 AM EDT > See phone encounter Coding P-Comprehensive Metabolic Pa carlene (CMP) Coding Albumin 09/14/2024 00:00: 00:00:00P-Comprehensive Metabolic Panel (CMP)A/G Fozfo4866-22-13Y90:00:001.71.1-2.5 -ReviewedGobleElidia 09/15/2024 09:15:27 AM EDT > See phone encounter Coding P-Comprehensive Metabolic Pa carlene (CMP) Coding A/G Ratio 09/14/2024 00:00:00009/14/2024 00:00:00Glycohemoglobin A1c (in house) snxpnjblpqgttnk7821-66-89O02:00:006.8%%5 - 6.5 %Maribel Mirza 09/14/2024 10:33:23 AM EDT > Elidia Schmidt 09/15/2024 09:15:27 AM EDT > See phone encounter Coding Glycohemoglobin A1c (in hous e) Coding glycohemoglobin 09/14/2024 00:00:00009/14/2024 00:00:00Glucose (In-House)blood glucose 5221-83-46X40:00:18532qo/dL74 - 106 mg/dLReMaribel Moon 09/14/2024 10:30:44 AM EDT > Elidia Schmidt 09/15/2024 09:15:27 AM EDT > See phone encounter Coding Glucose (In-House) 09/14/2024 00:00:00
--- OUTSIDE RECORDS SUMMARY | 2025-01-04 08:43 | XMS_ITS | Clinical Summary ---
Author Organization [employer] ([place], [place], [place], [place]) Address [address] [place] [address] Care Team Providers Care Ceramics Teacher Name Role Phone Trevor De Guzman MD Primary Care Provider [phone] Allergies Active Allergy Reactions Criticality Noted Date Comments Amoxicillin-Pot Clavulanate 03/20/19 25 Povidone-Iodine 03/20/2024 Medications triamterene-hydr oCHLOROthiazide (MAXZIDE-25) 37.5-25 mg per tablet Take 1 tablet by mouth daily. 12/30/2023 Active lisinopriL (ZESTRIL) 5 MG tablet Take 1 tablet (5 mg total) by mouth daily. Active doxazosin (CARDURA XL) 8 MG 24 hr tablet Acti ve EZETIMIBE ORAL Activ e omeprazole (PriLOSEC OTC) 20 MG tablet Take 1 tablet (20 mg total) by mouth daily. Active Active Problems Problem Noted Date Diagnosed Date At risk for sleep apnea 03/20/2024 Back pain 03/20/2024 Disorder of prostate 03/20/2024 High blood pressure 03/20/2024 Hyperlipidemia 03/20/2024 Sleep apnea 03/20/2024 Hx of colonic polyps 01/01/2024 Social History Tobacco Use Types Packs/Day Years Used Date Smoking Tobacco: Never Smokeless Tobacco: Never Tobacco Cessation:Counseling Given: Not Answered Alcohol Use Standard Drinks/Week Comments Never 0 (1 standard drink = 0.6 oz pur e alcohol) Sex and Gender Information Value Date Recorded Sex Assigned at Not on file Legal Sex Male 5:51 PM CDT Gender Identity Not on file Sexual Orientation Not on file Last Filed Vital Signs Vital Sign Reading Time Taken Comments Blood Pressure 110/53 03/20/2024 8:17 AM EST Pulse 72 03/20/2024 8:17 AM EST Temperature 36.8 C (98.2 F) 03/20/2024 8:07 AM EST Respiratory Rate 16 03/20/2024 8:17 AM EST Oxygen Saturation 98% 03/20/2024 8:17 AM EST Inhaled Oxygen Concentration - - Weight - - Height - - Body Mass Index - - Plan of Treatment Health Maintenance Due Date Last Done Comments CT Colonography 1955 FOBT/FIT 1955 Fit-DNA (Cologuard) 1955 Sigmoidoscopy 1955 Depression Screening (12+) 1967 Hepatitis C Screening 06/08/1973 DTAP/TDAP/TD VACCINES (1 - Tdap) 06/08/1974 Pneumococcal 50+ years (1 of 1 - PCV) 06/08/2005 Shingles Vaccine (Zoster) (1 of 2) 06/08/2005 Medicare Initial AWV [id number] 05/10/2021 Falls Risk Screening 03/11/2024 COVID-19 VACCINE (3 - season) 11/09/202410/2020, 03/16/2020 Influenza Vaccine (#1) 2024 Tobacco Cessation Counseling and Screening (12+) 03/20/2025 03/20/2024 Respiratory Syncytial Virus (RSV) Adult or (1 - 1-dose 75+ series) 06/08/2030 Colonoscopy 03/20/2034 03/20/2024 Colorectal Cancer Screening 03/20/2034 Insurance [facility] MEDICARE PPO Care Teams Ceramics Teacher Relationship Specialty Start Date End Date Trevor De Guzman MD [address] [place] [id number] PCP - General Family Medicine 03/18/24
--- OUTSIDE RECORDS SUMMARY | 2025-01-04 08:43 | XMS_ITS | Encounter Summary ---
Author Organization [employer] ([place], [place], [place], [place]) Address [address] [place] [address] Care Team Providers Care Hydraulic Specialist Name Role Phone Florencio Gonzalez MD Primary Care Provider [phone] Trevor De Guzman MD Primary Care Provider +- [phone] Encounter Details Date Type Department Care Team (Late st Contact Info) Description 12/19/2018 Transcribed Document [facility] [place] [facility] [place] [address] ProviderAni MD [address] [place] [address] Social History Tobacco Use Types Packs/Day Years Used Date Smoking Tobacco: Never Assessed Sex and Gender Information Value Date Recorded Sex Assigned at Not on file Legal Sex Male 5:51 PM CDT Gender Identity Not on file Sexual Orientation Not on file documented as of this encounter Miscellaneous Notes * Cerner Conversion Note - Ani ProviderMD - 12/19/2018 8:36 AM CDT [facility] Endo IntraOp Summary Primary Physician: TERI CEVALLOS MD-ASHU Finalized Date/Time: 12/19/18 08:55:33 Pt. Name: SARAN MULLINS/Sex: 1955 Male Med Rec #: [id number] Physician: TERI CEVALLOS MD-ASHU Financial #: [id number] Pt. Type: O Room/Bed: / Admit/Disch: 12/19/18 06:52:00 - Institution: [facility] - Case Attendance Entry 1 Entry 2 Entry 3 Case Attendee TERI CEVALLOS MD-ASHU HODGES, GELA HERBERT MD-DARLINE BUTT, PROFESSOR OF BIOLOGICAL SCIENCES Role Performed Surgeon/Proceduralist, PROFESSOR OF BIOLOGICAL SCIENCES/Nurse Floor Grinder Anesthesiologist of First Record Time In 12/19/18 08:28:00 12/19/18 08:28:00 12/19/18 08:28:00 Time Out 12/19/18 08:56:00 12/19/18 08:56:00 12/19/18 08:56:00 Procedure Colonoscopy Colonoscopy Colonoscopy Other Attendee Superficial Wound Closed By: Last Modified By: Africa Abrams RN Augusto, Aida A, RN Augusto, Aida A, RN 12/19/18 08:53:51 12/19/18 08:53:51 12/19/18 08:53:51 Entry 4 Entry 5 Case Attendee TERI DE LA TORRE Aida A, RN Role Performed Scrub, First Coal Picker, First Time In 12/19/18 08:28:00 12/19/18 08:28:00 Time Out 12/19/18 08:56:00 12/19/18 08:56:00 Procedure Colonoscopy Colonoscopy Other Attendee Superficial Wound Closed By: Last Modified By: Africa Abrams RN Augusto, Aida A, RN 12/19/18 08:53:51 12/19/18 08:53:51 [facility] Endo - Case Attendance Audit 12/19/18 08:53:51 Access Clerk: [id number] Modifier: [id number] 1 <+> Time Out 1 <*> Procedure Colonoscopy 2 <+> Time Out 2 <*> Procedure Colonoscopy 3 <+> Time Out 3 <*> Procedure Colonoscopy 4 <+> Time Out 4 <*> Procedure Colonoscopy 5 <+> Time Out 5 <*> Procedure Colonoscopy 12/19/18 08:31:00 Access Clerk: [id number] Modifier: [id number] <+> Time In 1 <*> Procedure Colonoscopy <+> 2 Case Attendee <+> 2 Role Performed <+> 2 Time In <+> 2 Procedure <+> 3 Case Attendee <+> 3 Role Performed <+> 3 Time In <+> 3 Procedure <+> 4 Case Attendee <+> 4 Role Performed <+> 4 Time In <+> 4 Procedure <+> 5 Case Attendee <+> 5 Role Performed <+> 5 Time In <+> 5 Procedure [facility] Endo - Case times Entry 1 Patient In Room Time 12/19/18 08:28:00 Out Room Time 12/19/18 08:56:00 Anesthesia Start Time 12/19/18 08:28:00 Stop Time 12/19/18 08:55:00 Surgery / Procedure Times Start Time 12/19/18 08:36:00 Stop Time 12/19/18 08:52:00 Last Modified By: Africa Abrams RN 12/19/18 08:53:03 [facility] Endo - Case times Audit 12/19/18 08:53:03 Access Clerk: [id number] Modifier: [id number] <+> 1 Out Room Time <+> 1 Stop Time <+> 1 Stop Time 12/19/18 08:38:22 Access Clerk: [id number] Modifier: [id number] <+> 1 Start Time <+> 1 Start Time [facility] Endo - Delays Entry 1 Delay Reason Other Duration 0 Minute(s) Last Modified By: Africa Abrams RN 12/19/18 08:31:09 [facility] Endo - Departure from OR Entry 1 Integumentary Assessment Integumentary WDL Assessment WDL Transfer/Handoff Transfer to PACU Phase I Handoff Method Bedside/Face to face Handoff Reported to Danyel Camilo RN Post-op Transport Stretcher/Gurney Via Patient Transport Africa Abrams RN, Accompanied by HIGINIO HODGES CRNA Last Modified By: Africa Abrams RN 12/19/18 08:31:29 [facility] Endo - Endoscopy Details Entry 1 Abdomen Procedure Soft, Non-Tender Assessment Procedure Abdomen 12/19/18 08:28:00 Assessment D/T Radio Frequency Ablation Last Modified By: Africa Abrams RN 12/19/18 08:32:05 [facility] Endo - Fire Risk Assessment Entry 1 Fire Info Surgical Site or 0- No Incision Above the Xyphoid Open O2 Source 1- Yes (Mask or Cannula) Available Ignition 1- Yes (ESU, Laser, Light Source) Fire Risk 2 Assessment Score Fire Score Fire Risk Yes Assessment Complete Fire Risk Africa Abrams RN Assessment Verified By Fire Risk 12/19/18 08:28:00 Assessment Verified Date/Time Fire Risk High Risk Protocol Yes Implemented Standard Fire Yes Safety Precautions Followed Last Modified By: Africa Abrams RN 12/19/18 08:32:17 [facility] Endo - General Case Manager Coding 1 Case Information OR Endo 01 [facility] Case Level 1 Room Verified Yes Wound Class III - Contaminated Specialty SN General Anesthesia Type General ASA Class 2 Diagnosis Preop Diagnosis Z12.11 Postop Same As Preop No Postop Diagnosis Normal Last Modified By: Africa Abrams RN 12/19/18 08:53:45 [facility] Endo - General Case Data Audit 12/19/18 08:53:45 Access Clerk: [id number] Modifier: [id number] <+> 1 Postop Same As Preop <+> 1 Postop Diagnosis [facility] Endo - Intraoperative Assessment Entry 1 Handoff Reported to Danyel Camilo RN Handoff Method Bedside/Face to face Valid History / Yes Physical in Chart Preoperative Yes Checklist Reviewed/Evaluated Patient is Latex No Sensitive Level of WDL Consciousness (WDL = Alert, Oriented to Person, Place, and Time) Present Upon IVs Arrival to OR Last Modified By: Africa Abrams RN 12/19/18 08:33:37 [facility] Endo - Intraoperative Equipment Entry 1 Equipment Intraop Monitoring Electrocardiogram Three lead placement (ECG) Electrode Placement Blood Pressure Arm, left upper Location Pulse Oximeter Hand, right Probe Site Antiembolic Devices Scopes Flexible Endoscopes Colonoscope, Peds Used Scope Serial O Number/Identificatio n Number Photo/Video Documentation Photo Yes Video No Last Modified By: Africa Abrams RN 12/19/18 08:34:25 [facility] Endo - Patient Positioning Entry 1 Procedure Colonoscopy Body Position Lateral, right side up Left Arm Position Resting at side Right Arm Position Resting at side Left Leg Position Other Right Leg Position Other Position Comments Right leg over left leg, uncrossed Feet Uncrossed Yes Pressure Points Yes Checked Positioned By Africa Abrams RN Position Verified Positioning Yes Verified by Anesthesia Positioning Yes Verified by Surgeon Last Modified By: Africa Abrams RN 12/19/18 08:34:47 [facility] Endo - Sign In Entry 1 Patient, Site, Yes Procedure Identified Surgical Consent Yes Confirmed Relevant Surgical Yes Documents Available Surgical Site N/A Marked by person performing procedure Airway Hypothermia Risk No Warming Measures No Taken Last Modified By: Africa Abrams RN 12/19/18 08:35:10 [facility] Endo - Sign Out Entry 1 RN Confirmation Surgical Yes Procedure(s) Identified Instrument, Sponge N/A and Sharps Counts Correct/Documented Equipment Problems N/A Documented Specimen Labeled N/A Correctly Urinary Catheter N/A Documented in IView Safety Checklist Yes Elements Complete? RN Sign Out Africa Abrams RN Signature RN Sign Out 12/19/18 08:55:00 Signature Date/Time Plan of Care Outcome - Fire Risk OUTCOME STATEMENT: Goal met Patient is free from injury related to surgical fire Plan of Care Outcome - Pt Positioning OUTCOME STATEMENT: Goal met Absence of signs and symptoms of positioning injury. Plan of Care Outcome - Skin Prep OUTCOME STATEMENT: Goal met Intraoperative care is consistent with measures to prevent infection Plan of Care Outcome - Xray/Images OUTCOME STATEMENT: N/A Absence of observable signs or symptoms of radiation injury Plan of Care Outcome - Counts OUTCOME STATEMENT: N/A Absence of signs and symptoms of injury related to extraneous objects Last Modified By: Africa Abrams RN 12/19/18 08:53:32 [facility] Endo - Sign Out Audit 12/19/18 08:53:32 Access Clerk: [id number] Modifier: [id number] <+> 1 RN Sign Out Signature Date/Time <+> 1 Urinary Catheter Documented in IView [facility] Endo - Surgical Procedures Entry 1 Procedure Colonoscopy Additional ALLERGY TO BETADINE Procedure Description Primary Procedure Yes Primary Surgeon TERI CEVALLOS MD-ASHU Start 12/19/18 08:36:00 Stop 12/19/18 08:52:00 Physician States 12/19/18 08:43:00 Cecum Reached Anesthesia Type MAC Specialty SN Gastroenterology Wound Class III - Contaminated Last Modified By: Africa Abrams RN 12/19/18 08:53:12 [facility] Endo - Surgical Procedures Audit 12/19/18 08:53:12 Access Clerk: [id number] Modifier: [id number] 1 <*> Procedure Colonoscopy 1 <+> Stop [facility] Endo - Time Out Entry 1 Procedure to be Colonoscopy Performed Time Out Time Out Pause Time 12/19/18 08:32:00 All activity Yes suspended (unless life threatening emergency) Team Verbally Correct patient Confirms Information identity, Consent form is present and accurate, Agreement on the procedure to be done, Correct patient position, Relevant images/results properly labeled/appropriately displayed, Performed before each procedure if multiple procedures, Reconcile problems if responses among team members differ Antibiotic N/A Prophylaxis Administered Or In Progress Within the Last 60 Minutes Beta Kimberley N/A Administered Venous N/A Thromboembolism Prophylaxis Required Anticipated Critical Events Surgeon None expected Nursing Assures Sterility of instruments Last Modified By: Africa Abrams RN 12/19/18 08:54:08 [facility] Endo - Time Out Audit 12/19/18 08:54:08 Access Clerk: [id number] Modifier: [id number] 1 <+> Venous Thromboembolism Prophylaxis Required 1 <+> Antibiotic Prophylaxis Administered Or In Progress Within the Last 60 Minutes 1 <*> Procedure to be Performed Colonoscopy 12/19/18 08:43:44 Access Clerk: [id number] Modifier: [id number] 1 <*> Procedure to be Performed Colonoscopy Case Comments <None> Finalized By: Africa Abrams, RN Document Signatures Signed By: Africa Abrams RN 12/19/18 08:54 Africa Abrams RN 12/19/18 08:55 Unfinalized History Date/Time Username Reason for Unfinalizing Freetext Reason for Unfinalizing 12/19/18 08:55 [id number] Finish Documentation Electronically signed by Jorge [facility] Conversion Vinyl Hanger Cerner at 06/27/2022 1:40 PM CDT documented in this encounter Plan of Treatment Not on file documented as of this encounter Visit Diagnoses Not on filedocumented in this encounter Care Teams Hydraulic Specialist Relationship Specialty Start Date End Date Florencio Gonzalez MD [address] [facility] [address] [place] [id number] PCP - General Family Medicine 01/01/24 03/17/24 Trevor De Guzman MD [address] [facility] [address] [place] [id number] PCP - General Family Medicine 03/18/24 documented as of this encounter
--- OUTSIDE RECORDS SUMMARY | 2025-01-04 08:44 | XMS_ITS | Encounter Summary ---
Author Organization [employer] ([place], [place], [place], [place]) Address [address] [place] [address] Care Team Providers Care Instrument Repairer Helper Name Role Phone Florencio Gonzalez MD Primary Care Provider [phone] Trevor De Guzman MD Primary Care Provider [phone]- [phone] Encounter Details Date Type Department Care Team (Late st Contact Info) Description 12/19/2018 Transcribed Document [facility] [place] Medicine [address] [place] [address] ProviderAni MD [address] [place] [address] Social History Tobacco Use Types Packs/Day Years Used Date Smoking Tobacco: Never Assessed Sex and Gender Information Value Date Recorded Sex Assigned at Not on file Legal Sex Male 5:51 PM CDT Gender Identity Not on file Sexual Orientation Not on file documented as of this encounter Miscellaneous Notes * Cerner Conversion Note - Ani Mosley MD - 12/19/2018 9:23 AM CDT [facility] [place], [place] [id number] TROY MULLINSNY :1955 Visit Time:12/19/2018 What to do next Instructions From Your Care Team Diet after Discharge: Resume usual diet as tolerated, Do not drink any alcoholic beverages, _ Activity after Discharge: As tolerated, _, _ May Return to Work/School: Tomorrow Notify Provider of: Questions and concerns Follow up colonoscopy in 5 years. Follow-Up Appointments Follow Up with TERI CEVALLOS MD-ASHU When In 5 years Comments Follow up colonoscopy in 5 years. Where: [address] [facility] [address] [place] [id number]- Medications What How Much When Instructions Next Dose bisoprolol (Zebeta 10 mg oral tablet) 1 Tablet(s) Oral Every Day cholecalciferol (Vitamin D3 2000 intl units oral capsule) Oral Every Day cyanocobalamin (Vitamin B12 2500 mcg sublingual tablet) 20 Tablet(s) SubLINgual Every Day doxazosin (doxazosin 8 mg oral tablet) 1 Tablet(s) Oral Every Day ezetimibe (Zetia 10 mg oral tablet) 1 Tablet(s) Oral Every Day hydrochlorothiazide-triamterene (hydrochlorothiazide-triamterene 25 mg-37.5 mg oral tablet) 1 Tablet(s) Oral Every Day lisinopril (lisinopril 10 mg oral tablet) 1 Tablet(s) Oral Every Day omeprazole (PriLOSEC 20 mg oral delayed release capsule) 1 Capsule(s) Oral Every Day Take your medications faithfully. Do NOT skip medication. Do NOT stop taking medications without the direction of a physician. Carry a list of your medications with you at all times, and take this medication list with you to your first follow up visit. Report any side effects. Avoid herbal remedies unless discussed with your physician. As part of your treatment plan, your physician may have prescribed a limited course of a controlled substance. This medication may be given to help people with moderate or severe pain or for other medical conditions, but there are risks involved with treatment. Common side effects may include nausea, constipation, drowsiness, sweating, itching, dry mouth, and rash. More serious side effects may include cognitive and motor impairment, like problems with thinking, concentrating, alertness, and movement (e.g. slowed reflexes), and driving and operating heavy machinery can be dangerous. It is important for you to talk to your physician if you have these side effects or questions. These controlled substances can produce physical dependence and be habit-forming if taken for an extended period of time, which means that the body has gotten used to them and may experience withdrawal symptoms if they are abruptly stopped. Withdrawal symptoms can include runny nose, sweating, goose bumps, diarrhea, abdominal cramping, rapid heartbeat, difficulty sleeping, and nervousness. Please dispose of unused and medications per pharmacy guidance. Education Materials Colonoscopy, Adult, Care After This sheet gives you information about how to care for yourself after your procedure. Your health care provider may also give you more specific instructions. If you have problems or questions, contact your health care provider. What can I expect after the procedure? After the procedure, it is common to have: ??? A small amount of blood in your stool for 24 hours after the procedure. ??? Some gas. ??? Mild abdominal cramping or bloating. Follow these instructions at home: General instructions ??? For the first 24 hours after the procedure: ? Do not drive or use machinery. ? Do not sign important documents. ? Do not drink alcohol. ? Do your regular daily activities at a slower pace than normal. ? Eat soft, xzwr-te-nvxjaq foods. ? Rest often. ??? Take nngv-cvw-duqmzco or prescription medicines only as told by your health care provider. ??? It is up to you to get the results of your procedure. Ask your health care provider, or the department performing the procedure, when your results will be ready. Relieving cramping and bloating ??? Try walking around when you have cramps or feel bloated. ??? Apply heat to your abdomen as told by your health care provider. Use a heat source that your health care provider recommends, such as a moist heat pack or a heating pad. ? Place a towel between your skin and the heat source. ? Leave the heat on for 20???30 minutes. ? Remove the heat if your skin turns bright red. This is especially important if you are unable to feel pain, heat, or cold. You may have a greater risk of getting burned. Eating and drinking ??? Drink enough fluid to keep your urine clear or pale yellow. ??? Resume your normal diet as instructed by your health care provider. Avoid heavy or fried foods that are hard to digest. ??? Avoid drinking alcohol for as long as instructed by your health care provider. Contact a health care provider if: ??? You have blood in your stool 2???3 days after the procedure. Get help right away if: ??? You have more than a small spotting of blood in your stool. ??? You pass large blood clots in your stool. ??? Your abdomen is swollen. ??? You have nausea or vomiting. ??? You have a fever. ??? You have increasing abdominal pain that is not relieved with medicine. This information is not intended to replace advice given to you by your health care provider. Make sure you discuss any questions you have with your health care provider. Document Released: 10/09/2004 Document Revised: 11/19/2016 Document Reviewed: 05/08/2016 [employer] Patient Education ?? 2018 [employer]. Emergency Awareness and Preventative Care STROKE is an EMERGENCY Every Minute Counts Act FAST and Check for these signs: FACE Does the face look uneven? ARM Does one arm drift down? SPEECH Does their speech sound strange? TIME Call at any sign of stroke Stroke Risk Factors Atrial Fibrillation (irregular heartbeat) Diabetes Family history of stroke Heart Disease Heavy alcohol use High Blood Pressure High Cholesterol Physical inactivity and obesity Smoking Cigarette Smoking The facts are clear, cigarette smoking will shorten your life. Smoking can cause many illnesses along the way. As a healthcare provider, we recommend that you stop smoking. Assistance with quitting is available by contacting 0-261-[employer]NOW. This is a free resource providing counseling, support, and referral. Or you may contact your personal physician. National Suicide Prevention Lifeline: The National Suicide Prevention Lifeline is a national network of local crisis centers that provides free and confidential emotional support to people in suicidal crisis or emotional distress 24 hours a day, 7 days a week. Don't Wait! Stop a Heart Attack Before it Starts What is a heart attack? A heart attack is damage or to a part of the heart from severely decreased or lack of blood flow to the heart. Over time, arteries can become narrow from the buildup of fat and cholesterol, which is called plaque. The plaque can rupture causing a blood clot to form. When the blood clot forms, the artery can become severely narrowed or completely blocked, causing a heart attack. Heart attack is the leading cause of in the [place]. 85% of muscle damage occurs within the first 2 hours. Delay in the recognition of heart attack symptoms increases the chances of . Know the early symptoms of a heart attack: Nausea Feeling of fullness in chest Jaw Pain Pain that travels down one or both arms Fatigue/being tired Anxiety Back Pain Chest pressure, squeezing, or discomfort Shortness of breath Sweating, or a cold sweat Feeling of impending doom There are unusual signs of a heart attack, too! Women, the elderly, and diabetics may present with atypical symptoms: Fainting/dizziness Weakness Confusion Risk Factors for a Heart Attack Some heart disease risk factors, such as age and family history, cannot be changed. Others, like smoking and lack of exercise, can be changed. Smoking High Cholesterol High Blood Pressure Family History Obesity Age Gender (Males are at higher risk) Lack of Exercise Diabetes Diet Stress Excessive Alcohol Intake If you or someone you know is experiencing the signs and symptoms of a heart attack, DON???T DELAY. Call immediately and seek help. If someone collapses, perform CPR! Do not attempt to drive if you are having symptoms of heart attack. Hands-Only CPR Why Hands-Only CPR? Hands-Only CPR has been shown to be as effective as conventional CPR for cardiac arrests that occur outside of a hospital. Survival depends on immediately receiving CPR from someone nearby. How do you perform Hands-Only CPR? There are two easy steps: Call if you see a teen or adult collapse Push hard and fast in the center of the chest at a beat of 100 beats per minute. Save a life! 4 WAYS TO GET AHEAD OF SEPSIS SEPSIS is a MEDICAL EMERGENCY. Time matters! Infections put you and your family at risk for a life-threatening condition called sepsis. Sepsis is the body's extreme response to an infection. It is life-threatening, and without timely treatment, sepsis can rapidly lead to tissue damage, organ failure, and . Sepsis happens when an infection you already have-in your skin, lungs, urinary tract or somewhere else-triggers a chain reaction throughout your body. 1 PREVENT INFECTIONS Take good care of chronic conditions. Talk to your doctor about getting the recommended vaccines. 2 PRACTICE GOOD HYGIENE Wash your hands frequently. Keep cuts or open sores clean and covered until they are healed. 3 KNOW THE SYMPTOMS Confusion or disorientation Shortness of breath High heart rate Fever, shivering, or feeling very cold Extreme pain or discomfort Clammy or sweaty skin 4 ACT FAST Get medical care IMMEDIATELY if you suspect sepsis or if you have an infection that is not getting better or is getting worse. To learn more about sepsis and how to prevent infections, visit www.cdc.gov/sepsis. Test Results Laboratory or Other Results This Visit (last charted value for your 12/19/2018 visit) No Laboratory or Other Results This Visit Patient Name:GALLITO MULLINS I have received this information and was given the opportunity to ask questions. Patient/Alodize Machine Operator Name: Patient/Alodize Machine Operator Signature: Relationship to Patient: Clinician/Hospital Alodize Machine Operator Signature: Date: documented in this encounter Plan of Treatment Not on file documented as of this encounter Visit Diagnoses Not on filedocumented in this encounter Care Teams Instrument Repairer Helper Relationship Specialty Start Date End Date Florencio Gonzalez MD [address] [place] [facility] [address] [place] [phone] PCP - General Family Medicine 01/01/24 03/17/24 Trevor De Guzman MD [address] [facility] [address] [place] [id number] PCP - General Family Medicine 03/18/24 documented as of this encounter
--- OUTSIDE RECORDS SUMMARY | 2025-01-04 08:44 | XMS_ITS | Encounter Summary ---
Author Organization [employer] ([place], [place], [place], [place]) Address [address] [place] [address] Care Team Providers Care Track Leader Name Role Phone Florencio Gonzalez MD Primary Care Provider [phone] Trevor De Guzman MD Primary Care Provider +- [phone] Encounter Details Date Type Department Care Team (Late st Contact Info) Description 12/19/2018 Transcribed Document [facility] Family Medicine [facility] [place] [address] ProviderAni MD [address] [place] [address] Social History Tobacco Use Types Packs/Day Years Used Date Smoking Tobacco: Never Assessed Sex and Gender Information Value Date Recorded Sex Assigned at Not on file Legal Sex Male 5:51 PM CDT Gender Identity Not on file Sexual Orientation Not on file documented as of this encounter Miscellaneous Notes * Cerner Conversion Note - Ani ProviderMD - 12/19/2018 8:00 AM CDT [facility] Meir PreOp Summary Primary Physician: TERI CEVALLOS MD-ASHU Finalized Date/Time: 12/19/18 08:08:43 Pt. Name: GALLITO MULLINS/Sex: 1955 Male Med Rec #: [id number] Physician: TERI CEVALLOS MD-ASHU Financial #: [id number] Pt. Type: O Room/Bed: / Admit/Disch: 12/19/18 06:52:00 - Institution: [facility] PreOp Case Times Entry 1 In Preop 12/19/18 07:35:00 Ready for Holding n/a Room Patient Ready for 12/19/18 08:08:00 Surgery Patient Out of Preop 12/19/18 08:08:00 Patient Out of n/a Holding Room Last Modified By: Hillary Hernandez Rn-Traveler 12/19/18 08:08:38 Finalized By: Hillary Hernandez Rn-Traveler Document Signatures Signed By: Hillary Hernandez Rn-Traveler 12/19/18 08:08 Electronically signed by Jorge [facility] Conversion Operator [employer] Cerner at 06/27/2022 1:16 PM CDT documented in this encounter Plan of Treatment Not on file documented as of this encounter Visit Diagnoses Not on filedocumented in this encounter Care Teams Track Leader Relationship Specialty Start Date End Date Florencio Gonzalez MD [address] [facility] [address] [place] [address] PCP - General Family Medicine 01/01/24 03/17/24 Trevor De Guzman MD [address] [facility] [address] [place] [address] PCP - General Family Medicine 03/18/24 documented as of this encounter
--- OUTSIDE RECORDS SUMMARY | 2025-01-04 08:44 | XMS_ITS | Encounter Summary ---
Author Organization [employer] ([place], [place], [place], [place]) Address [address] [place] [address] Care Team Providers Care Fixed Wing Pilot Name Role Phone Florencio Gonzalez MD Primary Care Provider [phone] Trevor De Guzman MD Primary Care Provider +- [phone] Encounter Details Date Type Department Care Team (Late st Contact Info) Description 12/19/2018 Transcribed Document [facility] [place] [facility] [place] [address] ProviderAni MD [address] [place] [address] Social History Tobacco Use Types Packs/Day Years Used Date Smoking Tobacco: Never Assessed Sex and Gender Information Value Date Recorded Sex Assigned at Not on file Legal Sex Male 5:51 PM CDT Gender Identity Not on file Sexual Orientation Not on file documented as of this encounter Miscellaneous Notes * Cerner Conversion Note - Ani Mosley MD - 12/19/2018 7:50 AM CDT Pre Procedure Adult Entered On: 12/19/2018 7:55 EDT Performed On: 12/19/2018 7:50 EDT by Hillary Hernandez, Rn-Traveler Height and Weight, Clinical Dosing Height Source : Stated Height Entry Format : [place] Height, Feet : 6 ft(Converted to: 183 cm, 72 Inch) Height, Inches : 6 Inch(Converted to: 0 ft 6 Inch, 15.24 cm) Clinical Height : 198.12 cm Weight Source : Standing scale Weight Entry Format : [place] Clinical Dosing Weight : 93.18 kg Weight, Pounds : 205 lb Body Surface Area (BSA) : 2.28 m2 Body Mass Index : 23.7 kg/m2 [place] Body Weight : 90 kg Hillary Hernandez Rn-Traveler - 12/19/2018 7:50 EDT Health Histories Smoking Status : Never (less than 100 in lifetime; none in last 30 days) Smokeless Tobacco Status : Never Hillary Hernandez Rn-Traveler - 12/19/2018 7:50 EDT Social History (As Of: 12/19/2018 07:55:46 EDT) Tobacco: Smoking Status Never smoker. (Last Updated: 04/10/2016 10:24:35 EST by JONNY CAMPBELL RN) Alcohol: Alcohol Use History Yes. Days/Week: 1. (Last Updated: 04/10/2016 10:24:54 EST by JONNY CAMPBELL RN) Infectious Disease History Infectious Disease History : Chicken pox/Shingles, Influenza, Measles, Mumps Fever/Chills Last 48 Hours : No Travel To Regions with Travel Advisories : No Travel Outside [place] Within Last 30 Days : No Contact With Traveler to Advisory Region : No Tuberculosis Symptoms : None Hillary Hernandez Rn-Traveler - 12/19/2018 7:50 EDT Anesthesia/Transfusion History Family History of Anesthesia Reaction : No prior transfusion(s) Transfusion History : Prior anesthesia without reaction Family History of Anesthesia Reaction : None Hillary Hernandez Rn-Traveler - 12/19/2018 7:50 EDT Functional Assessment Living Situation : Home Patient Lives With : Spouse Current Home Treatments : None Hillary Hernandez Rn-Traveler - 12/19/2018 7:50 EDT Psychosocial History Currently in Unsafe Situation : No Tried to Harm Yourself in the Past? : No Thoughts of Harming/Killing Yourself : No Hillary Hernandez Rn-Traveler - 12/19/2018 7:50 EDT Advance Directive Patient has Advance Directive *Q : No, patient refuses Advance Directive information Hillary Henrandez Rn-Traveler - 12/19/2018 7:50 EDT General Info Want Family/Rep/Phys Notified of Admit : No Emergency Contact #1 : mei mullins Emergency Contact #1 Emergency Contact #1 Relationship : Emergency Contact #2 : n/a Emergency Contact #2 Phone Number : n/a Emergency Contact #2 Relationship : n/a Primary Language : Nauruan Communication Barrier : None Hillary Hernandez Rn-Traveler - 12/19/2018 7:50 EDT Sleep Apnea Risk Assmt Hx of Obstructive Sleep Apnea Diagnosis : No Snore Loudly : Yes Tired, Fatigued, or Sleepy During Day : Yes Observed Stopping Breathing During Sleep : Yes Have/Are Being Treated for Hypertension : Yes BMI Greater Than 35 kg/m2 : No Age over 50 Years Old : Yes Neck Circumference Greater Than 40 cm : No Gender Male : Yes STOP-BANG Sleep Apnea Risk Level Score : 6 Hillary Hernandez Rn-Traveler - 12/19/2018 7:50 EDT Neno Scale Neno Sensory Perception : No impairment Neno Moisture : Rarely moist Neno Activity : Walks frequently Neno Mobility : No limitation Neno Nutrition : Adequate Neno Friction and Shear : No apparent problem Neno Score : 22 Hillary Hernandez Rn-Traveler - 12/19/2018 7:50 EDT Fall Risk Scales ABCs Fall Injury Risk Identification : None MILTON Hx Falls Immediate/Within 3 Months : No Milton Secondary Diagnosis : Yes MILTON Use of Ambulatory Aid : None MILTON IV Therapy or IV Access : No [place] Gait/Transferring : Normal, bedrest, immobile Milton Mental Status : Oriented to own ability [place] Fall Risk Score : 15 [place]TON Fall Scale Risk Level : 0-24 Low Risk [place] Fall Interventions : Adequate lighting, Assistive devices within reach, Bed in low position, Call device within reach, Fall prevention handout/education per facility policy, Frequent orientation to call device, Frequent orientation to surroundings, Hourly comfort/safety rounds, Non-slip footwear, Personal items within reach, Reinforced to call for assistance before getting out of bed, Room free of clutter/spills, Upper side-rails up, Wheels locked, Wires/Cords secured Hillary Hernandez Rn-Traveler - 12/19/2018 7:50 EDT Valuables and Belongings Valuables and Belongings : Clothing Clothing : Common streetwear Clothing Disposition : With family Hillary Hernandez Rn-Traveler - 12/19/2018 7:50 EDT documented in this encounter Plan of Treatment Not on file documented as of this encounter Visit Diagnoses Not on filedocumented in this encounter Care Teams Fixed Wing Pilot Relationship Specialty Start Date End Date Florencio Gonzalez MD [address] [place] [facility] [address] [place] [address] PCP - General Family Medicine 01/01/24 03/17/24 Trevor De Guzman MD [address] [facility] [address] [place] [address] PCP - General Family Medicine 03/18/24 documented as of this encounter
--- OUTSIDE RECORDS SUMMARY | 2025-01-04 08:44 | XMS_ITS | Patient Health Record ---
Author Organization [facility] Address [address] [place] [id number] Care Team Providers Care Aircraft Restorer Name Role Phone Judy De Guzman Primary Care Provider [phone] Carlos Florencio Unavailable [phone] Allergies Allergen (clinical drug ingredient) Drug/Non Drug Allergy documented on EMR Reaction Allergy Type Onset Date Status amoxicillin / clavulanate Augmentin stomach upset Drug Allergy Active povidone-iodine Betadine Unknown Drug Allergy A ctive Substance with 1-mbkhwix-1-methylglu taryl-coenzyme A reductase inhibitor mechanism of action [...] 09:17:34 AM Interpretation:Glu 124 Performing Lab: Notes/Report: Test performed by [facility] , [address], [place] [address] Emeka Colmenares MD, Construction Safety Consultant CLIA: [id number] Sodium 140 135-145 mmol/L Potassium 4.0 3.5-5.3 [...] 3.3 Performing Lab: Notes/Report: Test performed by [employer] [facility], [address] , [address], [place] [address] Emeka Colmenares MD, Construction Safety Consultant CLIA: [id number] Cholesterol 181 <200 mg/dL Triglycerides 145 <150 [...] Results: 117 Units: mg/dL % Change: +14% Glucose (In-House) Reviewed date:12/21/2024 11:43:53 AM Interpretation:97 Performing Lab: Notes/Report: 97 blood glucose 97 74 - 106 mg/dL Glycohemoglobin A1c (in hous e) Reviewed date:12/21/2024 11:43:53 AM Interpretation:5.9 Performing Lab: Notes/Report: 5.9 glycohemoglobin 5.9% 5 - 6.5 % P-Lipid Panel Reviewed date:03/19/2024 01:25:55 PM Interpretation:trigs 169, hdl 37, non-hdl 136 Performing Lab: Notes/Report: Test performed by [facility] [facility] [address] [place] [address] , [address], [place] [address] Emeka Colmenares MD, Construction Safety Consultant CLIA: [id number] Cholesterol 173 <200 mg/dL Triglycerides 169 <150 [...] Results: 102 Units: mg/dL % Change: -13% P-Comprehensive Metabolic Pa carlene (CMP) Reviewed date:03/19/2024 01:25:55 PM Interpretation:gluc 123 Performing Lab: Notes/Report: Test performed by [employer] [facility], [address] , [address], [place] [address] Emeka Colmenares MD, Construction Safety Consultant CLIA: [id number] Sodium 141 135-145 mmol/L Potassium 4.0 3.5-5.3 [...] 0.4 <0.2-1.2 mg/dL A/G Ratio 1.6 1.1-2.5 Glycohemoglobin A1c (in hous e) Reviewed date:03/19/2024 01:25:55 PM Interpretation:6.3% Performing Lab: Notes/Report: 6.3% glycohemoglobin 6.3% 5 - 6.5 % Reason For Referral No Information Medications Medication SIG (Take, Route, Frequency, Duration) Notes Start Date End Date Status Doxazosin Mesylate 8 MG 1 tablet Orally Once a day; Duration: 90 days Active Lisinopril 10 MG TAKE 1 TABLET BY ARTURO TH DAILY; Duration: 90 Active Jardiance 10 MG 1 tablet Orally Once a day 025 Active Ezetimibe 10 MG TAKE 1 TABLET BY ARTURO TH DAILY Active PriLOSEC OTC 20 MG 1 tab(s) orally once a day Active Triamterene-HCTZ 37.5-25 MG TAKE 1 TABLET BY MOUTH DAILY Active ZyrTEC Allergy 10 MG 1 tab(s) orally onc e a day; Duration: 0 Active Aspirin Low Dose 81 MG 1 tab(s) orally o nce a day; Duration: 30 day(s) Active Immunizations Vaccine Route Administration Date Status Comme nts COVID 19 Moderna Unknown 03/16/2020 Administered COVID 19 Moderna Unknown 04/18/2020 Administered COVID 19 Moderna Unknown 02/12/2021 Administered DT, 7 YEARS OR OLDER Unknown 05/14/1996 Administered Fluzone Quad (6months&older) IM Intramuscular 12/26/2016 Administered PNEUMOVAX 23 VACCINE IM Intramuscular 06/05/2016 Administe red xFlu shot- 6months-36 months of vam-IGZT-ULCE-trivalent Unknown 02/11/2016 Administered xAdministration of injection SC Subcutaneous 11/12/2014 Administered Prevnar (PCV13) IM Intramuscular 05/19/2021 Administered xFluzone (6mos and older)-trivalent IM Intramuscular 01/28/2013 Administered Problems Problem Type SNOMED Code ICD Code Onset Dates Problem Status W/U Status Risk Notes Problem Gastroesophageal reflux disease (069951202) GERD (gastroesophage al reflux disease) (K21.9) Active confirmed Problem Hypertension (10065082) HTN (hypertension) (I10) Active confirmed Problem History of calculus of kidney (600205057) History of kidney stones (Z87.442) Active confirmed Problem BMI 30+ - obesity (243556914) BMI 32.0-32.9,adult (Z68.32) Active confirmed Problem Body mass index 30+ - obesity (319528311) BMI 30.0-30.9,adult (Z68.30) Active confirmed Problem Allergic rhinitis (37373058) Allergic rhinitis (J30.9) Active confirmed Problem Dyslipidemia (535305048) Dyslipidemia (E78.5) Active confirmed Problem Type II diabetes mellitus without complication (665602226) Type 2 diabetes mellitus without complication, without long-term current use of insulin (E11.9) Active confirmed Problem Impaired fasting glycaemia (598438798) IFG (impaired fasting glucose) (R73.01) Active confirmed Problem Hepatic cyst (75340451) Hepatic cyst (K76.89) Active confirmed Problem Statin not tolerated (854383391) Statin intolerance (Z78.9) Active confirmed Vital Signs Heart Rate 76 /min 12/21/2024 Blood pressure diastolic 82 mm Hg 12/21/2024 Height 68.50 in 12/21/2024 Blood pressure systolic 126 mm Hg 12/21/2024 Weight 201 lbs 12/21/2024 BMI 30.11 kg/m2 12/21/2024 Encounters Encounter Location Date Provider Diagnosis Laureen 1209 [facility] [address] [place] [id number] 03/17/2024 R Joaquin De Guzman HTN (hypertension) I 10 ; Adult general medical examination Z00.00 ; Dyslipidemia E78.5 ; Impaired fasting glucose R73.01 ; Statin intolerance Z78.9 ; GERD (gastroesophageal reflux disease) K21.9 ; Hepatic cyst K76.89 ; History of kidney stones Z87.442 ; Allergic rhinitis J30.9 and BMI 30.0-30.9,adult Z68.30 [facility] 121 [facility] [address] [place] [id number] 08/21/2024 Florencio Broadbent Cellulitis, abdomina l wall L03.311 and BMI 32.0-32.9,adult Z68.32 [facility] [address] [place] [id number] 09/14/2024 Florencio Broadbent HTN (hypertension) I 10 ; Dyslipidemia E78.5 ; GERD (gastroesophageal reflux disease) K21.9 and IFG (impaired fasting glucose) R73.01 [facility] [address] [place] [id number] 12/21/2024 Florencio Broadbent Type 2 diabetes mellitus without complication, without long-term current use of insulin E11.9 and Pain in left foot M79.672 [facility] [address] [place] [id number] 03/09/2024 R Joaquin Gege Laureen [address] [facility] [address] [place] [id number] 03/19/2024 R Joaquin Gege Corrie [address] [place] [id number] 08/25/2024 Judy [facility] [address] [place], [place] [id number] 09/15/2024 Florencio Broadbent [facility] [address] [place], [place] [id number] 09/28/2024 Judy De Guzman [facility] [address] [place], [place] [id number] 11/04/2024 Florenciomp LockeBroadbent Assessments Encounter Date Diagnosis (ICD Code) Assessment Notes Treatment Notes Treatment Clinical Notes Section Notes 03/17/2024 HTN (hypertension) (ICD-10 - I10) 03/17/2024 Adult general medical examination (ICD-10 - Z00.00) Patient instructed to return to office Annually for Annual Wellness Visits to include annual screenings of Pain assessment, Functional Ability assessment, Cognitive Ability assessment, Fall Risk assessment, Depression screening and Bladder control screening. 08/21/2024 BMI 32.0-32.9,adult (ICD-10 - Z68.32) 08/21/2024 Cellulitis, abdominal wall (ICD-10 - L03.311) 09/14/2024 HTN (hypertension) (ICD-10 - I10) 09/14/2024 Dyslipidemia (ICD-10 - E78.5) 12/21/2024 Pain in left foot (ICD-10 - M79.672) 12/21/2024 Type 2 diabetes mellitus without complication, without long-term current use of insulin (ICD-10 - E11.9) 09/14/2024 GERD (gastroesophageal reflux disease) (ICD-10 - K21.9) 03/17/2024 Dyslipidemia (ICD-10 - E78.5) 03/17/2024 Impaired fasting glucose (ICD-10 - R73.01) Reinforced low-carb diet 09/14/2024 IFG (impaired fasting glucose) (ICD-10 - R73.01) 03/17/2024 Statin intolerance (ICD-10 - Z78.9) 03/17/2024 GERD (gastroesophageal reflux disease) (ICD-10 - K21.9) 03/17/2024 Hepatic cyst (ICD-10 - K76.89) 03/17/2024 History of kidney stones (ICD-10 - Z87.442) 03/17/2024 Allergic rhinitis (ICD-10 - J30.9) 03/17/2024 BMI 30.0-30.9,adult (ICD-10 - Z68.30) Plan Of Treatment Pending Test Test Name Order Date Lipid Profile 11/18/2020 X ray : Foot, left 12/21/2024 CMP 11/18/2020 Kidney stone analysis 11/04/2020 Next Appt Details Provider Name:Florencio Wilson ry, 03/17/2025 09:30:00 AM, [address], [place], [place], [id number], Insurance Providers Payer Name Payer Address Payer Phone Subscriber Number Group Number Insured Name Patient Relationship to Insured Coverage Start Date Coverage End Date [employer] ([employer]) [address] [address] [facility] [place] [phone] [id number] SARAN ANTONIO Self - patient is the insured Medications Administered Medication Instructions Date of Administration Dosage Notes Depo- Medrol 40 mg/ml 02/14/2023 1.5 mL Dexamethasone 03/16/2021 1.5 mL Dexamethasone 03/16/2021 1.5 mL Pt tolerate d well Dexamethasone 12/08/2021 1 mL Dexamethasone 02/27/2022 1.5 mL Dexamethasone 12/29/2018 1 mL Toradol 11/03/2020 60 mg Dexamethasone 07/31/2021 1 mL Dexamethasone 05/20/2018 1 mL Medical (General) History Medical History History ICD Code Hypertension Hiatal Hernia Gallbladder attacks Broken right clavical L4 & L5 Ruptured disc Impaired fasting glucose Surgical History Surgery Date(Month/Year) Hernia surgery X 3 Hydrocele Repair Cholecystectomy 2014 Colonoscopy Stress test showing fixed defect 03/2016 Heart cath showing only luminal irregula ritazael - Dr. Fernandez 03/2016 C-scope 2014 C-scope/ Normal/ Lucho Meza - 2019, 202 4 Hospitalization History Reason Date(Month/Year)
--- OUTSIDE RECORDS SUMMARY | 2025-01-04 08:44 | XMS_ITS | Encounter Summary ---
Author Organization [employer] ([place], [place], [place], [place]) Address [address] [place] [address] Care Team Providers Care University Controller Name Role Phone Florencio Gonzalez MD Primary Care Provider [phone] Trevor De Guzman MD Primary Care Provider +- [phone] Encounter Details Date Type Department Care Team (Late st Contact Info) Description 12/19/[address] [facility] Family Medicine [facility] [place] [address] ProviderAni MD [address] [place] [address] Social History Tobacco Use Types Packs/Day Years Used Date Smoking Tobacco: Never Assessed Sex and Gender Information Value Date Recorded Sex Assigned at Not on file Legal Sex Male 5:51 PM CDT Gender Identity Not on file Sexual Orientation Not on file documented as of this encounter Miscellaneous Notes * Cerner Conversion Note - Ani Mosley MD - 12/19/2018 9:21 AM CDT Patient Education Materials Follows: Colonoscopy, Adult, Care After This sheet gives [...] slower pace than normal. ? Eat soft, dcxg-zh-zdozfk foods. ? Rest often. ??? Take npmg-tbo-unxslfi or prescription medicines only as told by [...] source. ? Leave the heat on for 20?30 minutes. ? Remove the heat if your [...] ??? You have blood in your stool 2?3 days after the procedure. Get help right [...] 10/09/2004 Document Revised: 11/19/2016 Document Reviewed: 05/08/2016 Elsevier Interactive Patient Education ? 2018 [employer] documented in this encounter Plan of Treatment Not on file documented as of this encounter Visit Diagnoses Not on filedocumented in this encounter Care Teams University Controller Relationship Specialty Start Date End Date Flornecio Gonzalez MD [address] [place] [address] [place] [address] PCP - General Family Medicine 01/01/24 03/17/24 Trevor De Guzman MD [address] [place] [address] PCP - General Family Medicine 03/18/24 documented as of this encounter
--- OUTSIDE RECORDS SUMMARY | 2025-01-04 08:44 | XMS_ITS | Encounter Summary ---
Author Organization [employer] ([place], [place], [place], [place]) Address [address] [place] [address] Care Team Providers Care Steamfitter Apprentice Name Role Phone Florencio Gonzalez MD Primary Care Provider + [phone] Trevor De Guzman MD Primary Care Provider +- [phone] Encounter Details Date Type Department Care Team (Late st Contact Info) Description 12/19/2018 Transcribed Document [facility] [place] [address] [place] [address] ProviderAni MD [address] [place] [address] Social History Tobacco Use Types Packs/Day Years Used Date Smoking Tobacco: Never Assessed Sex and Gender Information Value Date Recorded Sex Assigned at Not on file Legal Sex Male 5:51 PM CDT Gender Identity Not on file Sexual Orientation Not on file documented as of this encounter Miscellaneous Notes * Cerner Conversion Note - Ani Mosley MD - 12/19/2018 9:27 AM CDT [facility] [place] [id number] GALLITO MULLINS :1955 Visit Time:12/19/2018 What to do next Your Diagnosis Encounter for screening for malignant neoplasm of colon, Encounter for screening for malignant neoplasm of colon Instructions From Your Care Team Diet after [...] up colonoscopy in 5 years. Where: [address] [facility] [address] [place] [address]- Medications What How Much When Instructions Next [...] slower pace than normal. ? Eat soft, upwh-hc-cywozd foods. ? Rest often. ??? Take uhrs-mxs-cvrcrjq or prescription medicines only as told by [...] 10/09/2004 Document Revised: 11/19/2016 Document Reviewed: 05/08/2016 [employer] Interactive Patient Education ?? 2018 [employer] Emergency Awareness and Preventative Care STROKE is [...] Assistance with quitting is available by contacting 2-441-BBGJ-NOW. This is a free resource providing counseling, [...] was given the opportunity to ask questions. Patient/Grounds Restoration Specialist Name: Patient/Grounds Restoration Specialist Signature: Relationship to Patient: Clinician/Hospital Grounds Restoration Specialist Signature: Date: Electronically signed by Jorge [facility] Conversion Aviation Safety Officer Saraner at 06/27/2022 1:23 PM CDT documented in this encounter Plan of Treatment Not on file documented as of this encounter Visit Diagnoses Not on filedocumented in this encounter Care Teams Steamfitter Apprentice Relationship Specialty Start Date End Date Florencio Gonzalez MD [address] [place] [facility] [address] [place] [phone] PCP - General Family Medicine 01/01/24 03/17/24 Trevor De Guzman MD [address] [facility] [address] [place] [address] PCP - General Family Medicine 03/18/24 documented as of this encounter
--- OUTSIDE RECORDS SUMMARY | 2025-01-04 08:45 | XMS_ITS | Referral Summary ---
Author Organization [employer] ([place], [place], [place], [place]) Address [address] [place] [address] Care Team Providers Care Asphalt Tamping Machine Operator Name Role Phone Trevor De Guzman MD Primary Care Provider [phone] Allergies Active Allergy Reactions Criticality Noted Date [...] Mass Index - - Plan of Treatment Not on file Insurance [employer] MEDICARE PPO Care Teams Asphalt Tamping Machine Operator Relationship Specialty Start Date End Date Trevor De Guzman MD [address] [place] [address] PCP - General Family Medicine 03/18/24
== END 2025-01-04 23:59 | disposition home or self-care (01) ==
LOC: RAD 08:34
PROVIDERS: PCP Family Medicine; Visit Provider Family Medicine
DX: M77.32 Calcaneal spur, left foot (principal)
CPT/HCPCS: 73630